=== PATIENT | female | born 1935 | race Caucasian/White ===

== ENCOUNTER 2019-09-11 17:29 | Inpatient (IN) ==
--- NOTE | 2019-09-11 17:56 | Emergency Department Note ---
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 The patient states she was standing up from a chair while in her slippers. She reports she hit her head on the desk and now has severe, right hip pain. The patient notes her hip pain is 10/10 in severity, and she cannot move her leg because it causes discomfort. She states she has a history of a right knee replacement. She denies losing consciousness. The patient reports she is a Jehovah Witness and has limiting medical requests. Home Medications Home Medications Medication Instructions Recorded Confirmed Type glipizide 10 mg PO DAILY 09/11/19 09/11/19 History lisinopril 40 mg PO DAILY 09/11/19 09/11/19 History metformin 500 mg PO DAILY 09/11/19 09/11/19 History metoprolol tartrate 25 mg PO BID 09/11/19 09/11/19 History hbyipcbopqdr-kyonalof-wmdouo 1 tab PO DAILY 09/11/19 09/11/19 History [Multivitamin 50 Plus] simvastatin 20 mg PO DAILY 09/11/19 09/11/19 History Allergies Allergy/AdvReac Type Severity Reaction Status Date / Time No Known Allergies Unverified 09/25/09 09:15 Past Med/Surg History Medical History No pertinent past medical history Surgical History Status post right knee replacement Family History Other No pertinent family history Social History marital status: Current Living Situation: Family Feels Safe at Home: Yes Smoking Status: Former smoker Review of Systems See HPI for pertinent positives & negatives. and A total of 10 systems reviewed and were otherwise negative Physical Exam Vital Signs Vital Signs - 24 hr 09/11/19 17:39 09/11/19 17:41 09/11/19 17:45 Temperature 36.3 C L Temperature Source Oral Pulse Rate 63 64 63 Pulse Rate [Finger] 63 Pulse Rate from SpO2 Sensor 63 62 Respiratory Rate 17 19 12 Blood Pressure 222/87 H 222/87 H Blood Pressure [Right Arm] 222/87 H Blood Pressure Mean 97 132 Blood Pressure Mean [Right Arm] 132 Pulse Oximetry 89 L 98 96 Oxygen Delivery Method Room Air Sepsis Recent Fever Within 48 Hours No Sepsis New/Unexplained Change in Mental Status No Sepsis Action Taken by Nursing No Action Required 09/11/19 17:50 09/11/19 18:00 09/11/19 18:01 Temperature Temperature Source Pulse Rate 64 68 61 Pulse Rate [Finger] Pulse Rate from SpO2 Sensor 65 61 61 Respiratory Rate 23 26 H 26 H Blood Pressure Blood Pressure [Right Arm] Blood Pressure Mean Blood Pressure Mean [Right Arm] Pulse Oximetry 98 100 Oxygen Delivery Method Sepsis Recent Fever Within 48 Hours Sepsis New/Unexplained Change in Mental Status Sepsis Action Taken by Nursing 09/11/19 18:10 09/11/19 18:20 09/11/19 18:50 Temperature Temperature Source Pulse Rate 64 61 65 Pulse Rate [Finger] Pulse Rate from SpO2 Sensor 62 59 L Respiratory Rate 27 H 21 20 Blood Pressure Blood Pressure [Right Arm] Blood Pressure Mean Blood Pressure Mean [Right Arm] Pulse Oximetry 98 96 Oxygen Delivery Method Sepsis Recent Fever Within 48 Hours Sepsis New/Unexplained Change in Mental Status Sepsis Action Taken by Nursing 09/11/19 18:56 09/11/19 18:57 09/11/19 19:00 Temperature Temperature Source Pulse Rate 64 60 65 Pulse Rate [Finger] Pulse Rate from SpO2 Sensor 77 60 66 Respiratory Rate 21 15 16 Blood Pressure 185/110 H Blood Pressure [Right Arm] Blood Pressure Mean 148 Blood Pressure Mean [Right Arm] Pulse Oximetry 98 98 91 Oxygen Delivery Method Sepsis Recent Fever Within 48 Hours Sepsis New/Unexplained Change in Mental Status Sepsis Action Taken by Nursing 09/11/19 19:10 09/11/19 19:20 09/11/19 19:30 Temperature Temperature Source Pulse Rate 59 L 64 66 Pulse Rate [Finger] Pulse Rate from SpO2 Sensor 60 65 66 Respiratory Rate 24 19 20 Blood Pressure Blood Pressure [Right Arm] Blood Pressure Mean Blood Pressure Mean [Right Arm] Pulse Oximetry 98 100 98 Oxygen Delivery Method Sepsis Recent Fever Within 48 Hours Sepsis New/Unexplained Change in Mental Status Sepsis Action Taken by Nursing 09/11/19 19:31 09/11/19 19:40 09/11/19 19:50 Temperature Temperature Source Pulse Rate 63 64 82 Pulse Rate [Finger] Pulse Rate from SpO2 Sensor 63 64 Respiratory Rate 25 H 20 31 H Blood Pressure 199/123 H Blood Pressure [Right Arm] Blood Pressure Mean 131 Blood Pressure Mean [Right Arm] Pulse Oximetry 97 98 Oxygen Delivery Method Sepsis Recent Fever Within 48 Hours Sepsis New/Unexplained Change in Mental Status Sepsis Action Taken by Nursing 09/11/19 20:00 09/11/19 20:26 09/11/19 20:30 Temperature Temperature Source Pulse Rate 72 76 64 Pulse Rate [Finger] Pulse Rate from SpO2 Sensor 72 63 Respiratory Rate 26 H 31 H 31 H Blood Pressure 175/86 H Blood Pressure [Right Arm] Blood Pressure Mean 122 Blood Pressure Mean [Right Arm] Pulse Oximetry 97 95 Oxygen Delivery Method Sepsis Recent Fever Within 48 Hours Sepsis New/Unexplained Change in Mental Status Sepsis Action Taken by Nursing 09/11/19 20:40 09/11/19 20:50 Temperature Temperature Source Pulse Rate 61 66 Pulse Rate [Finger] Pulse Rate from SpO2 Sensor 67 65 Respiratory Rate 21 24 Blood Pressure Blood Pressure [Right Arm] Blood Pressure Mean Blood Pressure Mean [Right Arm] Pulse Oximetry 94 100 Oxygen Delivery Method Sepsis Recent Fever Within 48 Hours Sepsis New/Unexplained Change in Mental Status Sepsis Action Taken by Nursing CONSTITUTIONAL/VITAL SIGNS: Reviewed / noted above. GENERAL: Non-toxic in appearance. INTEGUMENTARY: Warm, dry, and [place]. HEAD: Normocephalic. Adequately approximated scalp laceration 2-3cm in length on the apex of the head that does not require repair. EYES: without scleral icterus or trauma. ENT/OROPHARYNX: clear and moist. LYMPHADENOPATHY/NECK: Is supple without lymphadenopathy or meningismus. RESPIRATORY: Lungs clear and equal. CARDIOVASCULAR: Regular rate and rhythm. GI/ABDOMEN: Soft and nontender. No organomegaly or pulsatile mass. No rebound or guarding. Normal bowel sounds. EXTREMITIES: Warm and well perfused. Discomfort in the right femur/hip area with movement and palpation. BACK: No CVA tenderness. NEUROLOGICAL: Intact without focal deficits. PSYCHIATRIC: normal affect. MUSCULOSKELETAL: Normally developed with good muscle tone. Course Course 1743: The patient was evaluated in room B03B. A complete history and physical exam was performed. 2000: I reevaluated the patient and discussed her current test results. 2056: Upon reevaluation, the patient is resting comfortably. I discussed laboratory and radiographic results with her. She verbalized agreement of the treatment plan. The patient will be evaluated for further management and care. 2102: I reviewed the patient's case with Dr. Cano, [facility] Hospitalist. He will evaluate the patient for further management. Administered Medications Morphine Sulfate (Morphine Sulfate) 4 mg IV Q1H PRN PRN Reason: Severe Pain (Rating 7,8,9,10) Stop: 09/25/19 17:51 Last Admin: 09/11/19 19:54 Dose: 4 mg Documented by: [id number] Admin: 09/11/19 18:08 Dose: 4 mg Documented by: [id number] Discontinued Medications Ondansetron HCl (Zofran) Confirm Administered Dose 4 mg .ROUTE .InVitae-MED ONE Stop: 09/11/19 18:07 Last Admin: 09/11/19 20:13 Dose: Not Given Documented by: [id number] Medical Decision Making Differential Diagnosis Differential diagnoses include major intracranial, cervical, spinal, thoracic, abdominal, pelvic and neurologic injury. Fracture, contusion, sprain, strain, laceration, abrasions included as well. Medical Records Attestation: I reviewed the patient's medical records. Home Medications Current Medication List: was personally reviewed by me Laboratory Data Attestation: I reviewed the patient's lab results. Result diagrams: 09/11/19 17:48 09/11/19 17:48 Lab Results 09/11/19 09/11/19 09/11/19 Range/Units 17:48 17:48 17:48 WBC 6.42 (4.8-10.8) K/uL RBC 4.14 L (4.2-5.4) M/uL Hgb 13.5 (12.0-16.0) g/dL Hct 40.1 (37-47) % MCV 96.9 (80-100) fL MCH 32.6 (25-34) pg MCHC 33.7 (32-36) g/dL RDW Std Deviation 48.2 H (36.4-46.3) fL RDW Coeff of Elton 13.5 (11.5-14.5) % Plt Count 256 (130-400) K/uL MPV 10.2 (7.4-10.4) fL Immature Gran % (Auto) 0.3 % Neut % (Auto) 53.8 % Lymph % (Auto) 35.4 % Kerr % (Auto) 8.3 % Eos % (Auto) 1.6 % Baso % (Auto) 0.6 % Immature Gran # (Auto) 0.02 (0.00-0.02) K/uL Neut # (Auto) 3.46 (1.4-6.5) K/uL Lymph # (Auto) 2.27 (1.2-3.4) K/uL Kerr # (Auto) 0.53 (0.11-0.59) K/uL Eos # (Auto) 0.10 (0-0.5) K/uL Baso # (Auto) 0.04 (0-0.2) K/uL PT 10.2 (9.0-12.0) Seconds INR 1.0 (0.9-1.1) APTT 26.8 (21.0-31.0) Seconds PTT Ratio 1.0 Sodium 138 (136-145) mmol/L Potassium 4.1 (3.5-5.1) mmol/L Chloride 107 (98-107) mmol/L Carbon Dioxide 26 (21-32) mmol/L Anion Gap 5.0 (3-11) BUN 24 H (7-18) mg/dl Creatinine 1.38 H (0.6-1.2) mg/dl Est Cr Clr Drug Dosing Not Reportable Est GFR ( Amer) 40.3 Est GFR (Non-Af Amer) 34.8 BUN/Creatinine Ratio 17.4 (10-20) Glucose 147 H (70-99) mg/dl Calcium 9.5 (8.5-10.1) mg/dl Specimen Hemolysis Imaging Data Radiologist's Impression: Radiology results as stated below per my review and the radiologist's interpretation: CT hip RT wo con CT DOSE: 396.97 mGy.cm HISTORY: Trauma. Pain. r/o fx TECHNIQUE: Multiaxial CT images of the right hip were performed and reformatted in the sagittal and coronal plane without the use of contrast. A dose lowering technique was utilized adhering to the principles of ALARA. COMPARISON: None. FINDINGS: Fracture subcapital region right hip. There are findings of an anterior lucency of the femoral neck possibly on the basis of or accentuated by osteoporosis. A lytic process isn't not easily identified. Possible hairline extension to the lesser trochanter. This is best seen on image 221. Old healed fracture right pubic ring. No evidence for dislocation. Femoral neck is slightly anterior to the subcapital region. IMPRESSION: 1. Slightly displaced and distracted subcapital fracture right hip. 2. Linear hairline extension to the lesser trochanter. 3. No evidence for dislocation. 4. Osteopenia/osteoporosis. ACT 112: Negative or not required by law. The above report was generated using voice recognition software. It may contain grammatical, syntax or spelling errors. Electronically signed by: Srinivas Gutiérrez M.D. 09/11/2019 8:29 PM XR femur RT 2V routine CLINICAL HISTORY: pain after fall trauma. Pain. COMPARISON: None. DISCUSSION: Slight linear sclerosis subcapital region right hip on the slightly rotated image. Remainder the femur is unremarkable. There is a total right knee arthroplasty. IMPRESSION: Sclerotic line at the subcapital region of the right hip. Considerations include artifact versus slightly impacted fracture. CT of the right hip is suggested as follow-up. ACT 112: Negative or not required by law. The above report was generated using voice recognition software. It may contain grammatical, syntax or spelling errors. Electronically signed by: Srinivas Gutiérrez M.D. 09/11/2019 6:57 PM XR hip RT 2V w pelvis CLINICAL HISTORY: fall, pain trauma. Pain. COMPARISON: None. DISCUSSION: Sclerotic linear focus subcapital region right hip. CT of the right hip is again suggested as follow-up. The remainder the bony pelvis shows generalized degenerative changes throughout. No evidence for acetabular protrusion. There is no evidence for soft tissue swelling. IMPRESSION: Artifact versus slightly impacted subcapital fracture right hip. CT of the right hip is suggested as follow-up. ACT 112: Negative or not required by law. The above report was generated using voice recognition software. It may contain grammatical, syntax or spelling errors. Electronically signed by: Srinivas Gutiérrez M.D. 09/11/2019 6:58 PM XR chest 1V portable CLINICAL HISTORY: fall, rt hip pain COMPARISON STUDY: No previous studies for comparison. FINDINGS: Severe degenerative change right shoulder. Prior total left shoulder arthroplasty. IMPRESSION: No acute process. ACT 112: Negative or not required by law. The above report was generated using voice recognition software. It may contain grammatical, syntax or spelling errors. Electronically signed by: Srinivas Gutiérrez M.D. 09/11/2019 6:55 PM ECG Data Attestation: I personally reviewed and interpreted this ECG as follows: Indication: + other (trauma) Rate (beats per minute): 58 Rhythm: + sinus bradycardia ECG Intervals/blocks: + First degree AV block and + Normal QT-c ECG ST segments: no ST elevation ECG Findings: no PVCs Blood Pressure Blood Pressure Findings: Elevated blood pressure Blood Pressure Disposition: further management by hospitalist MDM Narrative This is a 84-year-old female who presents to the ED with a chief complaint of right-sided hip and femur pain after a fall. The patient states that she slipped when getting up from her desk and struck the back of her head on the desk. She denies loss of consciousness. She has a 2 to 3 cm laceration of the scalp posterior that is adequately approximated naturally. This does not require repair. The patient also has tenderness to the right hip and femur area as well as discomfort with rotation and any type of movement. There is no appreciated shortening but there is a slight external rotation. The rest of the patient exam was unremarkable for any significant or concerning trauma. Her initial blood pressure was elevated likely related the pain. She was ordered IV morphine for discomfort. The patient CBC and chemistry panel was unremarkable. The BUN is 24 and creatinine 1.38. X-rays of the pelvis and right hip as well as right knee did not show acute fracture but there was a questionable fracture and CT scan was recommended of the right hip. CT scan reveals a slightly displaced and distracted subcapital hip fracture with linear extension into the lesser trochanter. The patient was treated with morphine for her pain. She was told the results. I spoke with the hospitalist who will see the person for further inpatient evaluation and care. Impression & Plan Closed fracture of right hip, Laceration of occipital scalp Discharge Plan Visit Data Chief Complaint: Hip Pain Stated Complaint: HIP DISLOCATION ED Provider: Leon Fagan Discharge Problem: Closed fracture of right hip, Laceration of occipital scalp Patient Disposition: Being Evaluated by Hospitalist Forms Stand Alone Forms: My [facility] Prescriptions Prescriptions: No Action glipizide 10 mg tablet 10 mg PO DAILY RF: 0 simvastatin 20 mg tablet 20 mg PO DAILY RF: 0 metoprolol tartrate 50 mg tablet 25 mg PO BID RF: 0 lisinopril 40 mg tablet 40 mg PO DAILY RF: 0 metformin 500 mg tablet extended release 24 hr 500 mg PO DAILY RF: 0 Multivitamin 50 Plus Tablet 1 tab PO DAILY RF: 0 Referrals Referrals: Srinivas James MD [Primary Care Provider] - Discharge Problem: Closed fracture of right hip Qualifiers: Encounter type: initial encounter Qualified Code(s): S72.001A - Fracture of unspecified part of neck of right femur, initial encounter for closed fracture Laceration of occipital scalp Qualifiers: Encounter type: initial encounter Qualified Code(s): S01.01XA - Laceration without foreign body of scalp, initial encounter The scribe's documentation has been prepared under my direction and personally reviewed by me in its entirety. I confirm that the note above accurately reflects all work, treatment, procedures, and medical decision making performed by me.
[2019-09-11] MEDS ORDERED: ONDANSETRON INJ 2 MG/ML 2 ML VIAL ONE (18:06)
[2019-09-11] MEDS: MoRPHine SULFATE 4 MG/ML 1 ML CARP\\VIAL IV PRN ×3 (18:08→22:35)
[2019-09-11 18:20] LABS: Basophils # (auto) 0.04 K/uL (0-0.2); Basophils % (auto) 0.6 %; Eosinophils % (auto) 1.6 %; Hematocrit (blood only) 40.1 % (37-47); Hemoglobin 13.5 g/dL (12.0-16.0); Immature Granulocytes # (auto) 0.02 K/uL (0.00-0.02); Immature Granulocytes % (auto) 0.3 %; Lymphocytes # (auto) 2.27 K/uL (1.2-3.4); Lymphocytes % (auto) 35.4 %; Mean Corpuscular Hemoglobin 32.6 pg (25-34); Mean Corpuscular Hgb Conc 33.7 g/dL (32-36); Mean Corpuscular Volume 96.9 fL (80-100); Mean Platelet Volume 10.2 fL (7.4-10.4); Monocytes # (auto) 0.53 K/uL (0.11-0.59); Monocytes % (auto) 8.3 %; Neutrophils # (auto) 3.46 K/uL (1.4-6.5); Neutrophils % (auto) 53.8 %; Platelet Count 256 K/uL (130-400); RDW Coefficient of Variation 13.5 % (11.5-14.5); RDW Standard Deviation 48.2 fL (36.4-46.3); Red Blood Count 4.14 M/uL (4.2-5.4); White Blood Count 6.42 K/uL (4.8-10.8)
[2019-09-11 18:25] LABS: Partial Thromboplastin Time 26.8 Seconds (21.0-31.0); Prothrombin Time 10.2 Seconds (9.0-12.0)
[2019-09-11 18:29] LABS: BUN Creatinine Ratio 17.4 (10-20); Blood Urea Nitrogen 24 mg/dl (7-18); Calcium 9.5 mg/dl (8.5-10.1); Carbon Dioxide 26 mmol/L (21-32); Chloride 107 mmol/L (98-107); Est GFR (African American) 40.3; Est GFR (Non-African American) 34.8; Glucose 147 mg/dl (70-99); Potassium 4.1 mmol/L (3.5-5.1); Sodium 138 mmol/L (136-145)
--- NOTE | 2019-09-11 18:56 | XRay Report ---
XR chest 1V portable CLINICAL HISTORY: fall, rt hip pain COMPARISON STUDY: No previous studies for comparison. FINDINGS: Severe degenerative change right shoulder. Prior total left shoulder arthroplasty. IMPRESSION: No acute process. ACT 112: Negative or not required by law. The above report was generated using voice recognition software. It may contain grammatical, syntax or spelling errors. Electronically signed by: Srinivas Gutiérrez M.D. 09/11/2019 6:55 PM
--- NOTE | 2019-09-11 18:58 | XRay Report ---
XR femur RT 2V routine CLINICAL HISTORY: pain after fall trauma. Pain. COMPARISON: None. DISCUSSION: Slight linear sclerosis subcapital region right hip on the slightly rotated image. Remain sofia the femur is unremarkable. There is a total right knee arthroplasty. IMPRESSION: Sclerotic line at the subcapital region of the right hip. Considerations include artifact versus slightly impacted fracture. CT of the right hip is suggested as follow-up. ACT 112: Negative or not required by law. The above report was generated using voice recognition software. It may contain grammatical, syntax or spelling errors. Electronically signed by: Srinivas Gutiérrez M.D. 09/11/2019 6:57 PM
--- NOTE | 2019-09-11 19:00 | XRay Report ---
XR hip RT 2V w pelvis CLINICAL HISTORY: fall, pain trauma. Pain. COMPARISON: None. DISCUSSION: Sclerotic linear focus subcapital region right hip. CT of the right hip is again suggeste d as follow-up. The remainder the bony pelvis shows generalized degenerative changes throughout. No e vidence for acetabular protrusion. There is no evidence for soft tissue swelling. IMPRESSION: Artifact versus slightly impacted subcapital fracture right hip. CT of the right hip is s uggested as follow-up. ACT 112: Negative or not required by law. The above report was generated using voice recognition software. It may contain grammatical, syntax or spelling errors. Electronically signed by: Srinivas Gutiérrez M.D. 09/11/2019 6:58 PM
--- NOTE | 2019-09-11 20:31 | CT Scan Report ---
CT hip RT wo con CT DOSE: 396.97 mGy.cm HISTORY: Trauma. Pain. r/o fx TECHNIQUE: Multiaxial CT images of the right hip were performed and reformatted in the sagittal and c oronal plane without the use of contrast. A dose lowering technique was utilized adhering to the michael Miles. COMPARISON: None. FINDINGS: Fracture subcapital region right hip. There are findings of an anterior lucency of the femo ral neck possibly on the basis of or accentuated by osteoporosis. A lytic process isn't not easily id entified. Possible hairline extension to the lesser trochanter. This is best seen on image 221. Old healed fracture right pubic ring. No evidence for dislocation. Femoral neck is slightly anterior to the subcapital region. IMPRESSION: 1. Slightly displaced and distracted subcapital fracture right hip. 2. Linear hairline extension to the lesser trochanter. 3. No evidence for dislocation. 4. Osteopenia/osteoporosis. ACT 112: Negative or not required by law. The above report was generated using voice recognition software. It may contain grammatical, syntax or spelling errors. Electronically signed by: Srinivas Gutiérrez M.D. 09/11/2019 8:29 PM
[2019-09-11] MEDS ORDERED: MoRPHine SULFATE 4 MG/ML 1 ML CARP\\VIAL IV PRN (23:12)
[2019-09-11] MEDS ORDERED: ONDANSETRON INJ 2 MG/ML 2 ML VIAL IV PRN (23:12)
[2019-09-11] MEDS ORDERED: HydrALAZINE HCL 20 MG/ML VIAL IV PRN (23:12)
[2019-09-11] MEDS ORDERED: POLYETHYLENE (MIRALAX) 17 GM PACK PO PRN (23:12)
[2019-09-11] MEDS ORDERED: GLUCAGON FOR INJ 1 MG VIAL IM PRN (23:30)
[2019-09-11] MEDS ORDERED: GLUCOSE 10 TABS/TUBE PO PRN (23:30)
[2019-09-11] MEDS ORDERED: DEXTROSE 50% 50 ML SYRINGE IV PRN (23:30)
[2019-09-11] MEDS ORDERED: GLUCOSE 40% GEL 15 GM TUBE PO PRN (23:30)
[2019-09-11] MEDS ORDERED: CARBOHYDRATES FOR HYPOGLYCEMIA PO PRN (23:30)
[2019-09-11] MEDS: SODIUM CHLORIDE 0.9% 1000ML 1,000 ML IV SCH (23:50)
[2019-09-12] MEDS: METOPROLOL TARTRATE 25 MG TAB PO SCH ×3 (00:04→20:52)
[2019-09-12] MEDS: INSULIN ASPART 100 UNITS/ML 3 ML PEN SC SCH ×5 (00:20→22:03)
--- NOTE | 2019-09-12 00:44 | History and Physical Report ---
DATE OF ADMISSION: 09/11/2019 CHIEF COMPLAINT: Fall and hip fracture. HISTORY OF PRESENT ILLNESS: This is an 84-year-old female with past medical history significant for type 2 diabetes, hypertension, vitamin D deficiency, history of urinary frequency, generalized osteoarthritis, who lives with her , walks without any support, fell at home. The patient says she was getting up from the chair and she just turned and she is wearing a soft footwear when she slipped and fell on the right side. She also hit her head, was bleeding from the head, but there was no loss of consciousness, did not feel dizzy or chest pain before falling. It was a mechanical fall and she could not get up and she was brought in here. Head wound was fine, but imaging studies showed right hip slightly displaced and distracted subcapital fracture of right hip, linear hairline extension into the lesser trochanter. Has had pain medication. Currently resting comfortably. Any movement causes her pain. Hemodynamics are stable. Denies any headache, no blurred vision, no dizziness, no earache, no runny nose, no sore throat, no cough, no fever, no chills. Appetite is okay. No dysphagia, no chest pain, no shortness of breath, no nausea, no abdominal pain. She has normal bowel and bladder movements. No blood in the stools or black stools. No burning micturition, no swelling in the legs. ALLERGIES: EGGS. PAST MEDICAL HISTORY: As mentioned above. PAST SURGICAL HISTORY: Colonoscopy, right total knee arthroplasty, left shoulder replacement, right shoulder surgery. MEDICATIONS: The patient is on metformin 500 mg p.o. daily, Lopressor 25 mg p.o. b.i.d., glipizide 10 mg p.o. b.i.d., simvastatin 20 mg p.o. daily, lisinopril 40 mg p.o. daily. FAMILY HISTORY: No family history on file. SOCIAL HISTORY: , lives with her . No smoking, no alcohol, no drug use. REVIEW OF SYMPTOMS: As per HPI. Rest of review of symptoms negative. PHYSICAL EXAMINATION: GENERAL: The patient is old and frail, not in acute distress. VITAL SIGNS: Temperature 36.3, pulse 70, respiratory rate 18, blood pressure 104/51, oxygen 97% room air. HEENT: No pallor, no icterus. Pupils equal, round, reactive to light. NECK: No JVD, no neck masses, no carotid bruits. CARDIOVASCULAR: S1, S2 heard, regular rate and rhythm, no murmur, no gallop. RESPIRATORY SYSTEM: Normal AP diameter. No accessory muscle use. No wheezing, no crackles. ABDOMEN: Soft, bowel sounds present, nontender. No distention. CENTRAL NERVOUS SYSTEM: Alert and oriented. Obeys commands. Nonfocal. EXTREMITIES: Right lower extremity is shortened and externally rotated. No erythema seen. LABORATORY DATA: WBC 6.4, hemoglobin 13.5, hematocrit 40.1, platelets 256. PT 10.2, INR 1, APTT 26.8. Sodium 138, potassium 4.1, chloride 107, bicarbonate 26, BUN 24, creatinine 1.38, glucose 147, calcium 9.5. Chest x-ray: No acute process. Femur x-ray, sclerotic line in the subcapital region of the right hip. IMAGING: Hip and pelvic x-ray artifact versus slightly impacted subcapital fracture of the right hip. Hip CT, slightly displaced and distracted subcapital fracture of right hip, linear hairline extension into the lesser trochanter. No evidence of dislocation, osteopenia, osteoporosis. EKG: Sinus bradycardia with first degree AV block at a rate of 58. Some T-wave inversions in the anterior leads,ST-T abnormality. ASSESSMENT AND PLAN: This is an 84-year-old female who presents with fall. 1. Status post fall and mechanical fall and right hip fracture: Pain control with IV morphine p.r.n. Will keep her n.p.o. after midnight. Gentle fluids.Labs are okay. EKG changes, but we do not have an old EKG to compare. The patient is asymptomatic and she ambulates fine. We will follow the troponins. If troponin is negative, the patient should be at acceptable risk to proceed with surgery. 2. Diabetes. Hold metformin. Treated with metformin and glipizide 10 mg p.o. b.i.d. at home. She did not want to be on insulin. We will restart glipizide after surgery, with the lower dose but the patient is okay to take insulin only if sugars are high. placed on sliding scale without carb ratio. 3. Hypertension: Continue on Lopressor. Hold lisinopril until surgery and restart, meanwhile placed on IV hydralazine p.r.n. 4. Hyperlipidemia: On statin. 5. Deep venous thrombosis prophylaxis as per orthopedics after surgery. 6. Disposition: Admit to medical floor. Expect PT and OT prior to discharge. Social Service to help with discharge planning. Code status level 1 full code. MTDD
[2019-09-12 05:41] LABS: Basophils # (auto) 0.02 K/uL (0-0.2); Basophils % (auto) 0.2 %; Eosinophils # (auto) 0.05 K/uL (0-0.5); Eosinophils % (auto) 0.6 %; Hematocrit (blood only) 36.8 % (37-47); Hemoglobin 12.2 g/dL (12.0-16.0); Immature Granulocytes # (auto) 0.02 K/uL (0.00-0.02); Immature Granulocytes % (auto) 0.2 %; Mean Corpuscular Hgb Conc 33.2 g/dL (32-36); Mean Corpuscular Volume 96.6 fL (80-100); Mean Platelet Volume 9.6 fL (7.4-10.4); Monocytes # (auto) 0.53 K/uL (0.11-0.59); Monocytes % (auto) 5.9 %; Neutrophils # (auto) 7.51 K/uL (1.4-6.5); Neutrophils % (auto) 83.1 %; Platelet Count 202 K/uL (130-400); RDW Coefficient of Variation 13.5 % (11.5-14.5); RDW Standard Deviation 47.9 fL (36.4-46.3); Red Blood Count 3.81 M/uL (4.2-5.4); White Blood Count 9.03 K/uL (4.8-10.8)
[2019-09-12] MEDS ORDERED: COUGH DROP (SUGAR FREE) LOZ 24 LOZ/1 BOX BUCCAL ONE (05:49)
[2019-09-12 06:07] LABS: Estimated Average Glucose 140 mg/dl; Hemoglobin A1C 6.5 % (4.5-5.6)
[2019-09-12 06:11] LABS: BUN Creatinine Ratio 17.5 (10-20); Calcium 8.6 mg/dl (8.5-10.1); Creatinine Clr Calc Pharmacy 30.9 ml/min; Est GFR (African American) 44.6; Est GFR (Non-African American) 38.5; Magnesium 1.9 mg/dl (1.8-2.4); Potassium 4.7 mmol/L (3.5-5.1)
--- NOTE | 2019-09-12 06:36 | CT Scan Report ---
CT head/brain wo con CLINICAL HISTORY: fall. head injury COMPARISON STUDY: No previous studies for comparison. TECHNIQUE: Axial CT of the brain is performed from the vertex to the skull base. IV contrast was not administered for this examination. A dose lowering technique was utilized adhering to the principles of ALARA. CT DOSE: 767.83 mGy.cm FINDINGS: No intra or extra-axial mass lesions are visualized. There is no CT evidence of acute cortical infarc tion. There is no evidence of midline shift. There is no acute hemorrhage. No calvarial fractures ar e visualized. There are minor white matter hypodensities likely on a small vessel basis. There is no evidence of pathologic ventricular dilatation. There is mild sphenoid sinus mucosal thickening. IMPRESSION: No acute intracranial findings ACT 112: Negative or not required by law. Electronically signed by: Zohaib Escalante M.D. 09/12/2019 6:35 AM
--- NOTE | 2019-09-12 08:15 | Orthopedic Consultation ---
Date of Consultation September 12, 2019 Assessment & Plan (1) Closed fracture of right hip: I have spoken briefly to medicine service. She has a slight bump in her troponins and plans are to get an echocardiogram this morning. Plans will be to take her to the operating room for either a bipolar hemiarthroplasty versus total hip arthroplasty by when she is Medically cleared. History of Present Illness Reason for Consultation: Right hip fracture Attending Physician: Jl Anglin MD History of Present Illness Patient is an 84-year-old white female known to our practice who suffered a mechanical fall at home yesterday. Past medical history significant for type 2 diabetes, hypertension, vitamin D deficiency, history of urinary frequency, generalized osteoarthritis, Patient states she is unsure if her bone broke prior to the fall or after. She states she was rushing around and got out of her chair and was going to walk to another room. She ended up falling and she hit her head during the fall. She apparently had some mild bleeding from this but did not lose consciousness and denied any shortness of breath, chest pain, lightheadedness prior to or after the fall. She was unable to ambulate after the fall because of pain in her right hip and groin. She was brought to the emergency room and seen by the staff. X-rays were taken and was found that she had a displaced right subcapital hip fracture. [facility] and we have been asked to see her for hip fracture. Currently she is awake and alert sitting up in bed. She has pain off and on in the right hip. She has no other complaints. Allergies Allergy/AdvReac Type Severity Reaction Status Date / Time egg AdvReac Gastrointestinal Verified 09/12/19 15:02 Upset Home Medications Home Medications Medication Instructions Recorded Confirmed Type glipizide 10 mg PO DAILY 09/11/19 09/11/19 History lisinopril 40 mg PO DAILY 09/11/19 09/11/19 History metformin 500 mg PO DAILY 09/11/19 09/11/19 History metoprolol tartrate 25 mg PO BID 09/11/19 09/11/19 History emyilwhriqlh-abgocgln-hzsewd 1 tab PO DAILY 09/11/19 09/11/19 History [Multivitamin 50 Plus] simvastatin 20 mg PO DAILY 09/11/19 09/11/19 History Patient History Medical History No pertinent past medical history Surgical History 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 marital status: Current Living Situation: Spouse Feels Safe at Home: Yes Smoking Status: Former smoker Hx Alcohol Use: No Hx Substance Use: No Physical Exam Physical Exam: Patient is an 84-year-old white female who appears younger than her stated age. She is alert and oriented x3 and in no acute distress, pleasant and cooperative. She is having some mild hip pain in the right hip and groin at this point. She answers all questions appropriately. Focusing the exam of the right lower extremity, her right lower extremity is shortened and externally rotated compared to the left. No attempts are made to take the right hip through range of motion nor is the knee taken through range of motion secondary to right hip fracture. Her right knee is nontender on palpation and no overt swelling is noted. She has good range of motion of her right ankle and toes without discomfort. Left lower extremity is essentially benign at this time and is nontender at the hip knee and ankle. Distal pulses are equal bilaterally. Sensation is intact. She denies any pain in the shoulders elbows and wrists. She has good range of motion of the upper extremities. She does have some mild pain over the right lateral portion of her thoracic area and has some noted bruising from the fall. This is slightly tender on palpation. I can appreciate no crepitus on palpation. She denies any thoracic or lumbar spine pain at this time. There is no gross motor or sensory loss seen at this time; distal pulses of the upper extremities are within normal limits as well. Results & Data ([facility]) Vital Signs (Past 12 Hours) Vital Signs Temp Pulse Pulse Pulse Resp BP BP 09/12/19 07:36 36.7 C 70 18 09/12/19 05:32 80 09/12/19 00:03 71 09/11/19 22:55 36.5 C 76 16 169/73 H 09/11/19 22:22 69 19 178/75 H 09/11/19 22:20 72 24 09/11/19 22:10 70 20 09/11/19 22:02 71 22 09/11/19 22:01 71 27 H 196/85 H 09/11/19 22:00 72 23 09/11/19 21:50 70 27 H 09/11/19 21:40 72 29 H 09/11/19 21:30 70 18 09/11/19 21:20 70 18 09/11/19 21:10 69 20 09/11/19 21:01 62 24 104/51 L 09/11/19 21:00 67 30 H 09/11/19 20:50 66 24 09/11/19 20:40 61 21 09/11/19 20:30 64 31 H 09/11/19 20:26 76 31 H BP Pulse Ox 09/12/19 07:36 150/75 H 93 09/12/19 05:32 146/69 H 09/12/19 00:03 161/72 H 09/11/19 22:55 96 09/11/19 22:22 97 09/11/19 22:20 97 09/11/19 22:10 96 09/11/19 22:02 95 09/11/19 22:01 97 09/11/19 22:00 97 09/11/19 21:50 93 09/11/19 21:40 93 09/11/19 21:30 97 09/11/19 21:20 97 09/11/19 21:10 96 09/11/19 21:01 98 09/11/19 21:00 99 09/11/19 20:50 100 09/11/19 20:40 94 09/11/19 20:30 95 09/11/19 20:26 Diagnostic Findings [facility], [place] [phone] CT Scan Report Patient: Coral JOSHI Date: 09/11/19 MR#: [id number]: [address] Acct ID:[id number]: Date: [address] [place] [address] Zip: [place] [id number] Age: 84Location: ED Sex: F Room/Bed: Att Phy:Diagnosis: HIP DISLOCATION Jessica Phy: Srinivas James, MDService Date: 09/11/19 Fam Phy:Interpreting Phy: Srinivas Gutiérrez MD Admit Phy: Ordering Phy: Leon Fagan D.O. cc: ~ CT hip RT wo con CT DOSE: 396.97 mGy.cm HISTORY: Trauma. Pain. r/o fx TECHNIQUE: Multiaxial CT images of the right hip were performed and reformatted in the sagittal and coronal plane without the use of contrast. A dose lowering technique was utilized adhering to the principles of ALARA. COMPARISON: None. FINDINGS: Fracture subcapital region right hip. There are findings of an anterior lucency of the femoral neck possibly on the basis of or accentuated by osteoporosis. A lytic process isn't not easily identified. Possible hairline extension to the lesser trochanter. This is best seen on image 221. Old healed fracture right pubic ring. No evidence for dislocation. Femoral neck is slightly anterior to the subcapital region. IMPRESSION: 1. Slightly displaced and distracted subcapital fracture right hip. 2. Linear hairline extension to the lesser trochanter. 3. No evidence for dislocation. 4. Osteopenia/osteoporosis. (1) Closed fracture of right hip Encounter type: initial encounter Qualified Code(s): S72.001A - Fracture of unspecified part of neck of right femur, initial encounter for closed fracture
--- NOTE | 2019-09-12 10:45 | Cardiology Consultation ---
Date of Consultation September 12, 2019 Assessment & Plan (1) Closed fracture of right hip: (2) History of total replacement of left shoulder joint: (3) Hypertension: (4) Diabetes type 2, controlled: (5) Troponin level elevated: By the Darin criteria this patient is low risk for this surgery estimated to be 0.4%. She has a very borderline elevation of her troponin and I believe that it is most likely due to lab error. I would however wait for the additional troponin studies that are ordered. If the troponin is normal and does not elevate, then I believe she can proceed to surgery. I will also repeat her EKG due to the nonspecific ST and T wave changes to be certain there is not a p rogression. I reviewed her echocardiogram and there were no wall motion abnormalities that would suggest ischemic heart disease or significant valvular pathology. History of Present Illness Attending Physician: Jl Anglin MD History of Present Illness This is a very healthy 84-year-old female with minimal past medical history except for some mild essential hypertension and diabetes which has been well treated. She has no prior cardiac history. She was in a good state of health yesterday. She had house shoes on and stood up from a chair. Due to her shoes she slipped and fell fracturing her hip and striking her head. She sustained a contusion on her head but no significant head trauma. She had no symptoms such as dizziness, lightheadedness, chest pain or shortness of breath. This was strictly a mechanical fall. After admission to the hospital the patient has had a cardiac troponin which is just barely over the limit at 0.048. Her EKG shows a sinus bradycardia reflecting her use of metoprolol and there are some nonspecific lateral ST and T wave changes. She has no current cardiac complaints. Allergies Allergy/AdvReac Type Severity Reaction Status Date / Time No Known Allergies Unverified 09/25/09 09:15 Home Medications Home Medications Medication Instructions Recorded Confirmed Type glipizide 10 mg PO DAILY 09/11/19 09/11/19 History lisinopril 40 mg PO DAILY 09/11/19 09/11/19 History metformin 500 mg PO DAILY 09/11/19 09/11/19 History metoprolol tartrate 25 mg PO BID 09/11/19 09/11/19 History tmmoaztzjhzp-qisrthvv-qxobmn 1 tab PO DAILY 09/11/19 09/11/19 History [Multivitamin 50 Plus] simvastatin 20 mg PO DAILY 09/11/19 09/11/19 History Patient History Medical History No pertinent past medical history Surgical History History of total replacement of left shoulder joint Status post right knee replacement Family History Other No pertinent family history Social History Preferred Language: Malay Communication Ability: Effective 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 marital status: Current Living Situation: Spouse Feels Safe at Home: Yes Smoking Status: Former smoker Hx Alcohol Use: No Hx Substance Use: No Review of Systems Review of Systems: All systems reviewed & are unremarkable except as noted in HPI & below Nothing additional to add. Physical Exam Physical Exam: General: no acute distress and stated age Head: normocephalic, no masses, lesions, tenderness or abnormalities Eyes: conjunctiva are pink and non-injected, sclera clear Neck: supple, no adenopathy, no bruits, normal jugular venous pulse, no hepatojugular reflux Chest: normal shape and normal respiratory effort Lungs: clear to auscultation and percussion Cardiac Exam: - regular rate & rhythm, no murmurs gallops or rubs - normal S1, normal S2 Pulses: 2(+) throughout Abdomen: abdomen soft, non-tender, no abnormal masses and no hepatosplenomegaly Musculoskeletal: no gait disturbance, no joint inflammation, no deforming arthritis Extremities: no edema and no cyanosis Neuro: grossly normal exam Results & Data ([facility]) Vital Signs (Past 12 Hours) Vital Signs Temp Pulse Pulse Resp BP BP Pulse Ox 09/12/19 07:36 36.7 C 70 18 150/75 H 93 09/12/19 05:32 80 146/69 H 09/12/19 00:03 71 161/72 H 09/11/19 22:55 36.5 C 76 16 169/73 H 96 Laboratory Results Laboratory Results - last 24 hr 09/11/19 09/11/19 09/11/19 17:48 17:48 17:48 WBC 6.42 RBC 4.14 L Hgb 13.5 Hct 40.1 MCV 96.9 MCH 32.6 MCHC 33.7 RDW Std Deviation 48.2 H RDW Coeff of Elton 13.5 Plt Count 256 MPV 10.2 Immature Gran % (Auto) 0.3 Neut % (Auto) 53.8 Lymph % (Auto) 35.4 Whitley % (Auto) 8.3 Eos % (Auto) 1.6 Baso % (Auto) 0.6 Immature Gran # (Auto) 0.02 Neut # (Auto) 3.46 Lymph # (Auto) 2.27 Whitley # (Auto) 0.53 Eos # (Auto) 0.10 Baso # (Auto) 0.04 PT 10.2 INR 1.0 APTT 26.8 PTT Ratio 1.0 Sodium 138 Potassium 4.1 Chloride 107 Carbon Dioxide 26 Anion Gap 5.0 BUN 24 H Creatinine 1.38 H Est Cr Clr Drug Dosing Not Reportable Est GFR ( Amer) 40.3 Est GFR (Non-Af Amer) 34.8 BUN/Creatinine Ratio 17.4 Glucose 147 H POC Glucose Estimat Average Glucose Hemoglobin A1c Calcium 9.5 Magnesium Troponin I Specimen Hemolysis 09/11/19 09/12/19 09/12/19 23:38 05:21 05:21 WBC 9.03 RBC 3.81 L Hgb 12.2 Hct 36.8 L MCV 96.6 MCH 32.0 MCHC 33.2 RDW Std Deviation 47.9 H RDW Coeff of Elton 13.5 Plt Count 202 MPV 9.6 Immature Gran % (Auto) 0.2 Neut % (Auto) 83.1 Lymph % (Auto) 10.0 Whitley % (Auto) 5.9 Eos % (Auto) 0.6 Baso % (Auto) 0.2 Immature Gran # (Auto) 0.02 Neut # (Auto) 7.51 H Lymph # (Auto) 0.90 L Whitley # (Auto) 0.53 Eos # (Auto) 0.05 Baso # (Auto) 0.02 PT INR APTT PTT Ratio Sodium 139 Potassium 4.7 Chloride 110 H Carbon Dioxide 25 Anion Gap 5.0 BUN 22 H Creatinine 1.27 H Est Cr Clr Drug Dosing 30.9 Est GFR ( Amer) 44.6 Est GFR (Non-Af Amer) 38.5 BUN/Creatinine Ratio 17.5 Glucose 167 H POC Glucose 138 H Estimat Average Glucose Hemoglobin A1c Calcium 8.6 Magnesium 1.9 Troponin I Specimen Hemolysis 09/12/19 09/12/19 09/12/19 05:21 05:21 05:45 WBC RBC Hgb Hct MCV MCH MCHC RDW Std Deviation RDW Coeff of Elton Plt Count MPV Immature Gran % (Auto) Neut % (Auto) Lymph % (Auto) Whitley % (Auto) Eos % (Auto) Baso % (Auto) Immature Gran # (Auto) Neut # (Auto) Lymph # (Auto) Whitley # (Auto) Eos # (Auto) Baso # (Auto) PT INR APTT PTT Ratio Sodium Potassium Chloride Carbon Dioxide Anion Gap BUN Creatinine Est Cr Clr Drug Dosing Est GFR ( Amer) Est GFR (Non-Af Amer) BUN/Creatinine Ratio Glucose POC Glucose 131 H Estimat Average Glucose 140 Hemoglobin A1c 6.5 H Calcium Magnesium Troponin I 0.048 H* Specimen Hemolysis Medications Administered Current Inpatient Medications Acetaminophen (Tylenol) 650 mg PO Q4H PRN PRN Reason: pain/fever Stop: 10/11/19 23:11 Dextrose (Dextrose 50%) 25 - 50 ml IV UD PRN; Protocol PRN Reason: Hypoglycemia Protocol Stop: 10/11/19 23:29 Glucagon (Glucagen) 1 mg IM UD PRN; Protocol PRN Reason: Hypoglycemia Protocol Stop: 10/11/19 23:29 Glucose (Glucose 40%) 15 - 30 gm PO UD PRN; Protocol PRN Reason: Hypoglycemia Protocol Stop: 10/11/19 23:29 Glucose (Dex4 Glucose) 4 - 8 tabs PO UD PRN; Protocol PRN Reason: Hypoglycemia Protocol Stop: 10/11/19 23:29 Hydralazine HCl (Hydralazine Hcl) 5 mg IV Q4H PRN PRN Reason: Hypertension Stop: 10/11/19 23:11 Sodium Chloride (Nss 1000ml) 1,000 mls @ 80 mls/hr IV .[id number] GALLITO Stop: 10/11/19 23:11 Last Infusion: 09/12/19 06:17 Dose: 80 mls/hr Documented by: Insulin Aspart (Novolog Flexpen) 0 units SC Q6 GALLITO Stop: 10/12/19 00:00 Last Admin: 09/12/19 06:10 Dose: Not Given Documented by: Metoprolol Tartrate (Lopressor) 25 mg PO BID GALLITO Stop: 10/11/19 23:11 Last Admin: 09/12/19 00:04 Dose: 25 mg Documented by: Miscellaneous (Carbohydrates For Hypoglycemia) 15 - 30 gm PO UD PRN PRN Reason: Hypoglycemia Treatment Stop: 10/11/19 23:29 Morphine Sulfate (Morphine Sulfate) 3 mg IV Q4H PRN PRN Reason: Pain Stop: 09/25/19 23:11 Last Admin: 09/12/19 05:40 Dose: 3 mg Documented by: Multivitamins/Minerals (Multivitamin W/ Minerals Tab) 1 tab PO DAILY GALLITO Stop: 10/12/19 08:59 Ondansetron HCl (Zofran) 4 mg IV Q6H PRN PRN Reason: Nausea Stop: 10/11/19 23:11 Polyethylene Glycol (Miralax Powder Packet) 17 gm PO DAILY PRN PRN Reason: Constipation Stop: 10/11/19 23:11 Simvastatin (Zocor) 20 mg PO DAILY GALLITO Stop: 10/12/19 08:59 (1) Closed fracture of right hip Encounter type: initial encounter Qualified Code(s): S72.001A - Fracture of unspecified part of neck of right femur, initial encounter for closed fracture
[2019-09-12] MEDS: SODIUM CHLORIDE 0.9% 1000ML 1,000 ML IV SCH ×2 (13:45→19:41)
[2019-09-12] MEDS ORDERED: CEFAZOLIN 1000MG 1,000 MG/7.5 ML SYR IV ONE (14:34)
[2019-09-12] MEDS ORDERED: CEFAZOLIN 1,000 MG/7.5 ML IV PUSH IV ONE (14:36)
--- NOTE | 2019-09-12 14:38 | Electrocardiogram Report ---
Test Reason : Blood Pressure : / mmHG Vent. Rate : 058 BPM Atrial Rate : 058 BPM P-R Int : 242 ms QRS Dur : 092 ms QT Int : 422 ms P-R-T Axes : 017 000 002 degrees QTc Int : 414 ms Sinus bradycardia with 1st degree A-V block Possible Old Septal infarct Nonspecific ST and T wave abnormality Anterolateral leads Abnormal ECG When compared with ECG of 25-SEP-2009 09:39, [place] interval has increased Criteria for Old Septal infarct is now Present Otherwise no significant change Confirmed by Jama Castanon ([id number]) on 09/12/2019 2:38:02 PM Referred By: REFERRED SELF Confirmed By:Jama Castanon
--- NOTE | 2019-09-12 14:45 | Electrocardiogram Report ---
Test Reason : Blood Pressure : / mmHG Vent. Rate : 059 BPM Atrial Rate : 059 BPM P-R Int : 244 ms QRS Dur : 086 ms QT Int : 420 ms P-R-T Axes : 009 -02 006 degrees QTc Int : 415 ms Sinus bradycardia with 1st degree A-V block Nonspecific T wave abnormality Lateral leads Abnormal ECG When compared with ECG of 11-SEP-2019 18:12, Criteria for Septal infarct are no longer Present Otherwise no significant change Confirmed by Jama Castanon ([id number]) on 09/12/2019 2:45:10 PM Referred By: REFERRED SELF Confirmed By:Jama Castanon
--- NOTE | 2019-09-12 14:55 | Anesthesiology Consultation ---
Date of Service September 12, 2019 Assessment & Plan Consults Requested I have reviewed the draft cardiac note and talked to jose ramon zelaya. While there is a slight increase in troponin values, the patient looks good clinically. echo showed no signs of ischemia. Pt most recent ekg is improved. Pt remains low risk and the risk of not fixing the hip would continue to incerease. ASA ASA3 Proposed Anesthesia Anesthesia Type: General Regional Regional Laterality: Right Site: other (fasica illiaca) Risk / Benefits Reviewed With: PT / POA / Parent / Guardian, Accepts Plan and Informed Consent Obtained History Surgery Operation Date: 09/12/19 14:00 Proposed Procedures p Right Bipolar Hemiarthroplasty Hip - Cullen Alas MD Height/Weight Height: 5 ft 4 in Weight: 68.9 kg Allergies Allergy/AdvReac Type Severity Reaction Status Date / Time egg AdvReac Gastrointestinal Verified 09/12/19 15:02 Upset Medications Home Medications Medication Instructions Recorded Confirmed Last Taken glipizide 10 mg PO DAILY 09/11/19 09/11/19 Unknown lisinopril 40 mg PO DAILY 09/11/19 09/11/19 Unknown metformin 500 mg PO DAILY 09/11/19 09/11/19 Unknown metoprolol tartrate 25 mg PO BID 09/11/19 09/11/19 Unknown srffmtctnhtp-wlppfxmd-jftbhm 1 tab PO DAILY 09/11/19 09/11/19 Unknown [Multivitamin 50 Plus] simvastatin 20 mg PO DAILY 09/11/19 09/11/19 Unknown Active Medications Generic Name Dose Route Start Last Admin Trade Name Freq PRN Reason Stop Dose Admin Sodium Chloride 1,000 mls @ 80 mls/hr 09/11/19 23:12 09/12/19 13:45 Nss 1000ml IV 10/11/19 23:11 80 mls/hr .[id number] GALLITO Administration Insulin Aspart 0 units 09/12/19 00:00 09/12/19 14:13 Novolog Flexpen SC 10/12/19 00:00 Not Given Q6 GALLITO Metoprolol Tartrate 25 mg 09/11/19 23:12 09/12/19 11:26 Lopressor PO 10/11/19 23:11 25 mg BID GALLITO Administration Morphine Sulfate 3 mg 09/11/19 23:12 09/12/19 05:40 Morphine Sulfate IV 09/25/19 23:11 3 mg Q4H PRN Administration Pain Past Medical History Medical History No pertinent past medical history Exercise / Class Metabolic Activity II 4-5 Yardwork/Stairs/Walk up hill Past Family History Family History Other No pertinent family history Past Surgical History Surgical History History of total replacement of left shoulder joint Status post right knee replacement Past Anesthesia History No Hx of Anesthesia Complications and No Family Hx of Anesthesia Complications History of PONV No Hx of PONV and No Hx of Motion Sickness Social History Smoking Status: Former smoker Hx Alcohol Use: No Hx Substance Use: No Review of Systems denies fever/cough/ colds/ chest pain/ SOB/ LASHAWN Constitutional: no fever and no chills Respiratory: no cough and no dyspnea denies LASHAWN Cardiovascular: no chest pain and no dyspnea on exertion Physical Exam Vital Signs Last Vital Signs Temp 36.8 C 09/12/19 12:49 Pulse 64 09/12/19 12:49 Resp 16 09/12/19 12:49 BP 133/62 09/12/19 12:49 Pulse Ox 96 09/12/19 12:49 ENMT Mouth: no TMJ abnormality and no dentition abnormality Thyromental Distance: > or= 3.5 Finger Breadths Mallampati Class: II Neck neck extension not limited Respiratory normal respiratory effort; no respiratory distress Auscultation: lungs clear to auscultation bilaterally Cardiovascular Rate/Rhythm: regular rate and regular rhythm Neurologic moves all extremities Psychiatric Orientation: alert and oriented x 3 Testing Laboratory Results 09/12/19 05:21 09/12/19 05:21 PT 10.2 Seconds (9.0-12.0) 09/11/19 17:48 INR 1.0 (0.9-1.1) 09/11/19 17:48 APTT 26.8 Seconds (21.0-31.0) 09/11/19 17:48 Hemoglobin A1c 6.5 % (4.5-5.6) H 09/12/19 05:21 09/12/19 09/12/19 14:02 05:45 POC Glucose 116 H 131 H
[2019-09-12] MEDS ORDERED: BACITRACIN INJ 50,000 UNIT VIAL ONE (14:56)
[2019-09-12] MEDS ORDERED: THROMBIN FOR SOLN 20000 UNIT KIT ONE (14:56)
--- NOTE | 2019-09-12 15:06 | History & Physical Bridge Note ---
Date of Service September 12, 2019 History & Physical Bridge Note I have examined the patient, reviewed the History & Physical and in the interval since the performance of the History & Physical I have noted the following changes of clinical significance: no changes noted
[2019-09-12] MEDS ORDERED: BUPIVACAINE/EPINEPHRINE 0.25% 1:200,000 30 ML VIAL ONE (15:08)
[2019-09-12] MEDS ORDERED: HYDROmorphone INJ 2 MG/ML SYR/VIAL IV PRN (15:09)
[2019-09-12] MEDS ORDERED: ATROPINE SULFATE 0.1 MG/ML 10ML SYR IV PRN (15:09)
[2019-09-12] MEDS ORDERED: ePHEDrine sulfate 50 MG/ML AMP IV PRN (15:09)
[2019-09-12] MEDS ORDERED: PROPOFOL IV EMULSION 10 MG/ML 20 ML VIAL IV ONE (15:09)
[2019-09-12] MEDS ORDERED: ONDANSETRON INJ 2 MG/ML 2 ML VIAL ONE (15:09)
[2019-09-12] MEDS ORDERED: GLYCOPYRROLATE 0.2 MG/ML VIAL ONE (15:09)
[2019-09-12] MEDS ORDERED: fentaNYL citrate 100 MCG/2 ML VIAL IV PRN (15:09)
[2019-09-12] MEDS ORDERED: fentaNYL citrate 100 MCG/2 ML VIAL ONE ×2 (15:09)
[2019-09-12] MEDS ORDERED: ONDANSETRON INJ 2 MG/ML 2 ML VIAL IV PRN (15:09)
[2019-09-12] MEDS ORDERED: MIDAZOLAM HCL 1 MG/ML 2ML VIAL IV STA (15:09)
[2019-09-12] MEDS ORDERED: NEOSTIGMINE METHYLSULFATE 5 MG/5 ML SYR ONE (15:09)
[2019-09-12] MEDS ORDERED: DEXAMETHASONE SOD INJ 4 MG/ML VIAL ONE (15:09)
[2019-09-12] MEDS ORDERED: LIDOCAINE HCL 2% 2 ML VIAL/AMP(20MG/ML) INFIL ONE (15:09)
--- NOTE | 2019-09-12 15:09 | Orthopedic Progress Note ---
Date of Service September 12, 2019 Assessment & Plan (1) Closed fracture of right hip: Displaced femoral neck fracture Garden 3 type fracture hairline fracture lesser trochanter. No pre-existing osteoarthritis in the hip. Patient is a household ambulator with minor community ambulation does not drive any longer. I believe with her comorbidities best procedure would be a cemented bipolar hemiarthroplasty. Discussed this with patient and her daughter and consent was signed today. Admission and Anticipated Discharge Date Admission Date: September 11, 2019 Subjective Right hip pain Review of Systems Review of Systems: Usual state of health prior to injury does not have any chest pain Physical Exam Physical Exam: Right leg shortened and externally rotated and painful with any range of motion consistent with hip fracture Results & Data ([facility]) Vital Signs (Past 12 Hours) Vital Signs Temp Pulse Pulse Resp BP Pulse Ox 09/12/19 14:44 36.8 C 64 21 150/90 H 94 09/12/19 12:49 36.8 C 64 16 133/62 96 09/12/19 07:36 36.7 C 70 18 150/75 H 93 09/12/19 05:32 80 146/69 H (1) Closed fracture of right hip Encounter type: initial encounter Qualified Code(s): S72.001A - Fracture of unspecified part of neck of right femur, initial encounter for closed fracture
[2019-09-12] MEDS ORDERED: MIDAZOLAM HCL 1 MG/ML 2ML VIAL ONE (15:11)
--- NOTE | 2019-09-12 17:50 | Post Operative Brief Note ---
Immediate Post Op Note v1 Date of Surgery September 12, 2019 Pre & Post Diagnosis Operation Date: 09/12/19 14:00 Pre-Op Diagnosis: Displaced Femoral Neck Fracture Right Hip Post-Op Diagnosis: Displaced Femoral Neck Fracture Right Hip I identified the patient and participated in the time-out.: Yes Procedure Operation Date: 09/12/19 14:00 Actual Procedures p Right Bipolar Hemiarthroplasty Hip Cemented(Right) - Cullen Alas MD Surgeon Cullen Alas MD [employer] OUMAR Dinh Estimated Blood Loss 50 Findings Consistent with Post-Op Diagnosis Specimens Femoral head Drains Rivera Catheter (16fr) and Hemovac Drain (1/8" Round, 400cc evacuator) Anesthesia Type General Complications none Disposition Accompanied Patient To Recovery: No Disposition: Recovery Room Overlapping Procedure I was immediately available: during the entire case.
--- NOTE | 2019-09-12 18:02 | Operative Report ---
Post Operative Report Pre & Post Diagnosis Operation Date: 09/12/19 14:00 Pre-Op Diagnosis: Displaced Femoral Neck Fracture Right Hip Post-Op Diagnosis: Displaced Femoral Neck Fracture Right Hip I identified the patient and participated in the time-out.: Yes Procedure Operation Date: 09/12/19 14:00 Actual Procedures p Right Bipolar Hemiarthroplasty Hip Cemented(Right) - Cullen Alas MD Surgeon Cullen Alsa MD Derrickman Helper OUMAR Dinh Estimated Blood Loss 50 Findings Consistent with Post-Op Diagnosis Specimens Femoral head Drains 2 Hemovac Anesthesia Type General Complications none Disposition Accompanied Patient To Recovery: No Disposition: Recovery Room Indications 84-year-old female primary household ambulator but some community ambulation. Had a fall and fractured right hip. CT scan and x-rays demonstrate significantly displaced femoral neck fracture with head rotated posteriorly off the neck. Possible fracture line extending down the lesser tuberosity. No evidence of any tumor. Description of Procedure Patient was taken to the operating room this is under anesthesia. The patient was placed supine on the operating table and the sacral pad. The hip was sterilely prepped and draped in usual sterile fashion. A Boyd-type approach was performed to the hip. A longitudinal incision was made over the hip. The skin was incised sharply and the subcutaneous tissues were divided down to the fascia. Subcutaneous bleeders were cauterized. The fascia ozzie was divided l ongitudinally. The gluteus medius was inspected and this demonstrated normal intact muscle and tendon. The medius was split between its anterior 40% and posterior 60%. The minimus was identified split longitudinally and reflected off of the capsule. An incision was made through the capsule extending up to the acetabulum leaving the acetabular labrum intact. A cuff of tissue of the medius was left on the greater trochanter for repair. The vastus lateralis was split for 3 cm. A muscular capsular flap was elevated off of the fracture. Femoral neck fracture demonstrated as a CT scan noted posterior displaced femoral neck fracture with the neck displaced anteriorly with a high neck fracture and posterior comminution intact lesser trochanter. The broach was used for a guide for the Biade C [employer] hip system. The neck cut was made approximately 15 mm proximal to the lesser trochanter in neutral anteversion. The remnants of the ligamentum teres was resected. The acetabulum demonstrated normal articular cartilage no damage. The acetabulum was sized for a size 46 component. There was a good suction fit with the trial. The femur was then exposed with flexion external rotation. The femoral canal was prepared with a box osteotome followed by canal reamer followed by sequential broaches up to a size 5 stem component. This had good fit and fill with the trial. Trial redu ction was performed with a -3 neck length bipolar trial. The hip was stable through flexion adduction and internal rotation and extension adduction and external rotation. Leg lengths demonstrated equal leg lengths. The trials removed and the canal was irrigated copiously with pulsatile lavage solution. The final component was the 132 degree neck angle size 5 cemented Accolade C stem Emprivo. The cement restrictor 12 mm medium was placed at appropriate depth and the canal was irrigated with a canal brush and a suction tampon and then Palacos cement was used to cement the implant. After the cement cured the 26 mm -3 offset femoral head was impacted onto the stem and then the 46 outer diameter 26 inner diameter bipolar head was assembled and snapped onto the head. The hip was reduced to the acetabulum and stability was verified and leg lengths were equal. The wound was copiously irrigated again with pulsatile lavage. 2 Hemovac drains were placed deep into the joint and brought out laterally. The gluteus medius was repaired with interrupted [id number] #1 Vicryl sutures repairing the split and then the minimus was repaired to the greater trochanter with transosseous #5 FiberWire suture Ga-Gabriel suture technique. The gluteus medius was repaired with transosseous #5 FiberWire sutures with Ga-Gabriel suture technique x2 and lateral row fixation with #2 Fi berWire figure of 8 sutures. The split in the medius was repaired with interrupted [id number] #1 Vicryl sutures and vastus lateralis split was repaired with dkorrk-ov-lskvn #1 Vicryl sutures.. The fascia ozzie was repaired with interrupted hfbgvb-xs-udlls #1 Vicryl sutures the subcutaneous tissue closed with large needle #2 Vicryl to close the large fatty layer and 2-0 Vicryl more superficial. The skin was closed with blake. Sterile dressings were applied. My physician field research assistant OUMAR Dinh functioned as rn first assistant throughout the surgery and assisted with positioning prepping draping leg position and soft tissue retraction instrument management and assisted in the outer closure and will participate in the postoperative care the patient. The patient tolerated the procedure well. I attest to the content of the Intraoperative Record and any orders documented therein. Any exceptions are noted below.
[2019-09-12] MEDS ORDERED: NALOXONE HCL 0.4 MG/1 ML VIAL/CARP IV PRN (18:11)
[2019-09-12] MEDS ORDERED: MAGNESIUM HYDROXIDE SUSP 30 ML UDC PO PRN (18:11)
[2019-09-12] MEDS ORDERED: bisacodyL 10 MG SUPP PR PRN (18:11)
[2019-09-12] MEDS ORDERED: SODIUM CHLORIDE 0.9% 1000ML 1,000 ML IV SCH (18:15)
--- NOTE | 2019-09-12 18:33 | XRay Report ---
XR hip 1V RT w pelvis CLINICAL HISTORY: IN PACU - A/P PELVIS and LATERAL HIP COMPARISON: 09/11/2019 DISCUSSION: Anatomic alignment post total right hip arthroplasty. Expected soft tissue postoperative change IMPRESSION: Anatomic alignment posttotal right hip arthroplasty. ACT 112: Negative or not required by law. The above report was generated using voice recognition software. It may contain grammatical, syntax or spelling errors. Electronically signed by: Srinivas Gutiérrez M.D. 09/12/2019 6:31 PM
--- NOTE | 2019-09-12 18:48 | Anesthesiology Progress Note ---
Date of Service September 12, 2019 Anesthesia Post Procedure Vital Signs Vital Signs: Temp Pulse Pulse Pulse Pulse Resp BP 09/12/19 18:40 73 17 09/12/19 18:30 93 H 17 09/12/19 18:20 88 17 09/12/19 18:13 36.1 C L 93 H 13 09/12/19 14:44 36.8 C 64 21 09/12/19 12:49 36.8 C 64 16 09/12/19 07:36 36.7 C 70 18 09/12/19 05:32 80 09/12/19 00:03 71 09/11/19 22:55 36.5 C 76 16 09/11/19 22:22 69 19 178/75 H 09/11/19 22:20 72 24 09/11/19 22:10 70 20 09/11/19 22:02 71 22 09/11/19 22:01 71 27 H 196/85 H 09/11/19 22:00 72 23 09/11/19 21:50 70 27 H 09/11/19 21:40 72 29 H 09/11/19 21:30 70 18 09/11/19 21:20 70 18 09/11/19 21:10 69 20 09/11/19 21:01 62 24 104/51 L 09/11/19 21:00 67 30 H 09/11/19 20:50 66 24 09/11/19 20:40 61 21 09/11/19 20:30 64 31 H 09/11/19 20:26 76 31 H 09/11/19 20:00 72 26 H 175/86 H 09/11/19 19:50 82 31 H 09/11/19 19:40 64 20 09/11/19 19:31 63 25 H 199/123 H 09/11/19 19:30 66 20 09/11/19 19:20 64 19 09/11/19 19:10 59 L 24 09/11/19 19:00 65 16 09/11/19 18:57 60 15 09/11/19 18:56 64 21 185/110 H 09/11/19 18:50 65 20 BP BP Pulse Ox 09/12/19 18:40 150/66 H 94 09/12/19 18:30 139/81 99 09/12/19 18:20 138/62 98 09/12/19 18:13 149/71 H 98 09/12/19 14:44 150/90 H 94 09/12/19 12:49 133/62 96 09/12/19 07:36 150/75 H 93 09/12/19 05:32 146/69 H 09/12/19 00:03 161/72 H 09/11/19 22:55 169/73 H 96 09/11/19 22:22 97 09/11/19 22:20 97 09/11/19 22:10 96 09/11/19 22:02 95 09/11/19 22:01 97 09/11/19 22:00 97 09/11/19 21:50 93 09/11/19 21:40 93 09/11/19 21:30 97 09/11/19 21:20 97 09/11/19 21:10 96 09/11/19 21:01 98 09/11/19 21:00 99 09/11/19 20:50 100 09/11/19 20:40 94 09/11/19 20:30 95 09/11/19 20:26 09/11/19 20:00 97 09/11/19 19:50 09/11/19 19:40 98 09/11/19 19:31 97 09/11/19 19:30 98 09/11/19 19:20 100 09/11/19 19:10 98 09/11/19 19:00 91 09/11/19 18:57 98 09/11/19 18:56 98 09/11/19 18:50 Pain Intensity Right Hip: Pain Intensity: 9 Transfer of Care Handoff Completed per policy Notes Mental Status: participated in evaluation Patient Amnestic to Procedure: Yes Nausea / Vomiting: adequately controlled Pain: adequately controlled Airway Patency, RR, SpO2: stable & adequate BP & HR: stable & adequate Hydration State: stable & adequate Anesthetic Complications: no major complications apparent Notes: Pt mildly confused post anesthesia - not unexpected due to the anesthetic and her age. Should improve as anesthesia clears.
[2019-09-12] MEDS ORDERED: PHARMACY GLYCEMIC MGMT CONSULT PRN (19:28)
--- NOTE | 2019-09-12 19:33 | Hospitalist Progress Note ---
Date of Service September 12, 2019 Assessment & Plan (1) Closed fracture of right hip: Present on admission after mechanical fall CT hip showed slightly displaced and distracted subcapital fracture right hip. Linear hairline extension to the lesser trochanter. CT head showed no acute intracranial findings S/P right Bipolar Hemiarthroplasty Hip Cemented performed by Dr. Alas today No post-op complication Continue incentive spirometry Continue Pain control PT/OT eval Monitor CBC Fall precaution (2) Troponin level elevated: Possible related to elevated creatinine Troponin on admission 0.04-->0.07 Denies any chest pain EKG showed nonspecific ST changes ECHO done showed no wall motion abnormality with EF btw 60-65 % Cardiology on board Case discussed with cardiology and ok to proceed with surgery Will continue trend trop continue monitor Diabetes Mos recent Hba1c 6.5 Will hold on Metformin and glipizide Continue insulin sliding scale Hypertension Lisinopril on hold BP stable DVT px on no anticoagulant due to recent surgery Code Status Full code Admission and Anticipated Discharge Date Admission Date: September 11, 2019 Subjective Pt was seen and examined Lying in bed with no different with daughter at bedside Pt just had surgery done and recovery very well Denies any pain currently Physical Exam Physical Exam: General- No acute distress Head- atraumatic Eyes- PERRL, EOMI, ENT- oropharynx clear Neck- supple, no JVD Lungs- clear to auscultation Heart- regular rhythm; no murmur Abdomen- normal bowel sounds, soft, nontender Extremities- no calf tenderness Neuro- alert, oriented x 3; PERRL, EOMI; no facial palsy; no dysarthria Skin- warm & dry Results & Data ([facility]) Vital Signs (Past 12 Hours) Vital Signs Temp Pulse Pulse Resp BP Pulse Ox 09/12/19 18:50 36.2 C L 72 18 135/80 93 09/12/19 18:40 73 17 150/66 H 94 09/12/19 18:30 93 H 17 139/81 99 09/12/19 18:20 88 17 138/62 98 09/12/19 18:13 36.1 C L 93 H 13 149/71 H 98 09/12/19 14:44 36.8 C 64 21 150/90 H 94 09/12/19 12:49 36.8 C 64 16 133/62 96 09/12/19 07:36 36.7 C 70 18 150/75 H 93 (1) Closed fracture of right hip Encounter type: initial encounter Qualified Code(s): S72.001A - Fracture of unspecified part of neck of right femur, initial encounter for closed fracture
[2019-09-12] MEDS ORDERED: LANTUS PER UNIT CHARGE SQ ONE (20:00)
--- NOTE | 2019-09-12 20:01 | Pharmacy Report ---
Glycemic Control Consultation - Date of Service September 12, 2019 - Scope Scope: Glycemic Pharmacist consulted for glycemic control and to write orders per [facility] inpatient glycemic control protocol. - Objective Weight: 68.9 kg Accuchecks BSG (last 24hrs): 09/11/19 09/12/19 09/12/19 23:38 05:21 05:45 Glucose 167 H POC Glucose 138 H 131 H 09/12/19 09/12/19 14:02 18:18 Glucose POC Glucose 116 H 165 H Laboratory Data (last 24hrs): 09/12/19 05:21 Potassium 4.7 Carbon Dioxide 25 Anion Gap 5.0 Creatinine 1.27 H Est Cr Clr Drug Dosing 30.9 HbA1c: Hemoglobin A1c 6.5 % (4.5-5.6) H 09/12/19 05:21 - Recent Pertinent Medications Outpatient Anti-diabetic Regimen: * metformin 500 mg PO daily * glipizide 10 mg PO daily * A1c = 6.5 % (09/12/19) The patient is currently receiving: * Correctional Insulin: Novolog Correction per scale ACHS Goal Range: Low 120 mg/dL - High 150 mg/dL Correction Factor: 30 mg/dL/unit Risk Factors for Insulin Resistance: * Steroids: Dexamethasone 8 mg IV x 1 intraop * Recent Surgery: POD #0 s/p right hemiarthroplasty * Diet: T2DM - Assessment & Plan Assessment & Plan: ASSESSMENT: * PY is an 84 year old female POD #0 s/p right hemiarthoplasty * Patient received 8 mg IV dexamethasone intraoperatively * Postop BSG in PACU was 165 mg/dL * BSGs since admission ranging 116-165 mg/dL * Per nursing, patient not hungry postop and did not eat dinner * Will not be overly aggressive given well controlled A1c, but will give some basal insulin given elevated fasting BSG this morning of 131 mg/dL and elevated postop BSG PLAN FOR INPATIENT GLYCEMIC CONTROL: * Holding outpatient oral diabetes medications * Basal insulin * Lantus 15 units (0.2 unit/kg) x 1 to cover steroids * Bolus insulin * NovoLog per scale ACHS or Q6hrs while NPO * Goal Range: Low 120 mg/dL - High 150 mg/dL * Correction Factor: 30 mg/dL/unit * Nutritional / Prandial insulin per carb ratio of 1 unit per 10 grams CHO consumed * Overnight checks at 00,04 with same parameters this evening * Please note that the plan above was derived based on current level of insulin resistance and hospital stress. These recommendations are appropriate for inpatient admission only. Plan of care upon discharge will need to be reassessed to avoid potential outpatient hypo/hyperglycemia. Thank you.
[2019-09-12] MEDS: SIMVASTATIN 20 MG TAB PO SCH (20:02)
[2019-09-12] MEDS: CEROVITE ADV FORMULA TAB PO SCH (20:02)
[2019-09-12] MEDS: SENNA 8.6 MG TAB PO SCH (20:53)
[2019-09-12] MEDS: CEFAZOLIN 1000MG 1,000 MG/7.5 ML SYR IV SCH (20:56)
[2019-09-13] MEDS: INSULIN ASPART 100 UNITS/ML 3 ML PEN SC SCH ×6 (00:25→21:29)
[2019-09-13] MEDS ORDERED: INSULIN ASPART 100 UNITS/ML 3 ML PEN SC SCH (02:00)
[2019-09-13] MEDS: CEFAZOLIN 1000MG 1,000 MG/7.5 ML SYR IV SCH (05:43)
[2019-09-13 06:40] LABS: Basophils # (auto) 0.02 K/uL (0-0.2); Basophils % (auto) 0.3 %; Eosinophils # (auto) 0.11 K/uL (0-0.5); Eosinophils % (auto) 1.4 %; Hematocrit (blood only) 31.8 % (37-47); Hemoglobin 10.5 g/dL (12.0-16.0); Immature Granulocytes # (auto) 0.02 K/uL (0.00-0.02); Immature Granulocytes % (auto) 0.3 %; Lymphocytes % (auto) 14.1 %; Mean Corpuscular Hemoglobin 32.5 pg (25-34); Mean Corpuscular Volume 98.5 fL (80-100); Mean Platelet Volume 9.7 fL (7.4-10.4); Monocytes # (auto) 0.45 K/uL (0.11-0.59); Monocytes % (auto) 5.8 %; Neutrophils # (auto) 6.12 K/uL (1.4-6.5); Neutrophils % (auto) 78.1 %; Platelet Count 179 K/uL (130-400); RDW Coefficient of Variation 13.8 % (11.5-14.5); RDW Standard Deviation 49.7 fL (36.4-46.3); Red Blood Count 3.23 M/uL (4.2-5.4); White Blood Count 7.82 K/uL (4.8-10.8)
[2019-09-13 07:16] LABS: BUN Creatinine Ratio 15.4 (10-20); Calcium 8.4 mg/dl (8.5-10.1); Creatinine Clr Calc Pharmacy 30.9 ml/min; Est GFR (African American) 44.6; Est GFR (Non-African American) 38.5; Potassium 4.4 mmol/L (3.5-5.1)
[2019-09-13 07:22] LABS: Troponin I 0.238 ng/ml (0-0.045)
[2019-09-13] MEDS: SODIUM CHLORIDE 0.9% 1000ML 1,000 ML IV SCH (08:01)
--- NOTE | 2019-09-13 08:29 | Anesthesiology Progress Note ---
Date of Service September 13, 2019 Anesthesia Post Procedure Vital Signs Vital Signs: Temp Pulse Pulse Pulse Resp BP Pulse Ox 09/13/19 07:20 36.3 C L 77 17 132/73 92 09/13/19 03:45 36.9 C 73 18 125/70 91 09/13/19 00:37 97 09/12/19 23:45 36.5 C 82 14 130/73 96 09/12/19 21:58 36.5 C 77 16 136/80 94 09/12/19 21:00 77 16 155/70 H 94 09/12/19 19:55 68 16 133/77 94 09/12/19 19:35 68 16 136/75 95 09/12/19 19:00 36.5 C 79 18 152/70 H 93 09/12/19 18:50 36.2 C L 72 18 135/80 93 09/12/19 18:40 73 17 150/66 H 94 09/12/19 18:30 93 H 17 139/81 99 09/12/19 18:20 88 17 138/62 98 09/12/19 18:13 36.1 C L 93 H 13 149/71 H 98 09/12/19 14:44 36.8 C 64 21 150/90 H 94 09/12/19 12:49 36.8 C 64 16 133/62 96 Pain Intensity Right Hip: Pain Intensity: 9 Notes Mental Status: alert / awake / arousable and participated in evaluation Patient Amnestic to Procedure: Yes Nausea / Vomiting: adequately controlled Pain: adequately controlled Airway Patency, RR, SpO2: stable & adequate BP & HR: stable & adequate Hydration State: stable & adequate Anesthetic Complications: no major complications apparent and Pt Satisfied with anesthetic care
--- NOTE | 2019-09-13 08:34 | Orthopedic Progress Note ---
Date of Service September 13, 2019 Assessment & Plan (1) Closed fracture of right hip: POD #1 Right hip bipolar hemiarthroplasty PT/ OT DVT proph- Lovenox D/C plans- Rehab As per medicine- Troponin elevated again- medicine/ cardiology aware Admission and Anticipated Discharge Date Admission Date: September 11, 2019 Subjective POD #1 Lying in bed with no different with daughter at bedside Pt just had surgery done and recovery very well Denies any pain currently Denies SOB/ CP/ N/V. Daughter states she had a bit of confusion overnight Physical Exam Physical Exam: Right hip silverlon dressing c/d/i, no drainage. Toes/ ankle mobile No calf tenderness. A&Ox3. N/V+. Results & Data ([facility]) Vital Signs (Past 12 Hours) Vital Signs Temp Pulse Pulse Resp BP Pulse Ox 09/13/19 07:20 36.3 C L 77 17 132/73 92 09/13/19 03:45 36.9 C 73 18 125/70 91 09/13/19 00:37 97 09/12/19 23:45 36.5 C 82 14 130/73 96 09/12/19 21:58 36.5 C 77 16 136/80 94 09/12/19 21:00 77 16 155/70 H 94 (1) Closed fracture of right hip Encounter type: initial encounter Qualified Code(s): S72.001A - Fracture of unspecified part of neck of right femur, initial encounter for closed fracture
[2019-09-13] MEDS: HYDROCODONE/ACETAMOPHEN 5/325MG TAB PO PRN ×3 (09:22→21:02)
[2019-09-13] MEDS: SIMVASTATIN 20 MG TAB PO SCH (09:23)
[2019-09-13] MEDS: CEROVITE ADV FORMULA TAB PO SCH (09:23)
[2019-09-13] MEDS: METOPROLOL TARTRATE 25 MG TAB PO SCH ×2 (09:23→21:01)
--- NOTE | 2019-09-13 09:49 | Pharmacy Report ---
Pharmacy Glycemic Short Note 2 - Date of Service September 13, 2019 - Glycemic Short BSG Results (Last 24 hours): 09/12/19 09/12/19 09/12/19 14:02 18:18 20:43 Glucose POC Glucose 116 H 165 H 207 H 09/12/19 09/13/19 09/13/19 23:45 03:45 06:06 Glucose 123 H POC Glucose 156 H 140 H 09/13/19 08:17 Glucose POC Glucose 110 H OUTPATIENT ANTIDIABETIC REGIMEN: * metformin 500 mg PO daily * glipizide 10 mg PO daily * A1c = 6.5 % (09/12/19) Risk Factors for Insulin Resistance: * Steroids: Dexamethasone 8 mg IV x 1 intraop * Recent Surgery: POD #1 s/p right hemiarthroplasty * Diet: T2DM - Assessment & Plan ASSESSMENT: 09/12 * Patient received 19 units of insulin yesterday, 15 of this being basal * Fasting BSG = 123 mg/dL * Patient will not receive further steroids so do not anticipate further elevation of BSG from this * Patient's troponin has bumped and medicine/cardiology following * Will plan to loosen Novolog parameters later today, when Decadron is wearing off * Will also provide a scale for reduced Lantus dosing. Anticipate small dose will be needed in the setting of requiring 2 oral agents at home. 09/11 * PY is an 84 year old female POD #0 s/p right hemiarthoplasty * Patient received 8 mg IV dexamethasone intraoperatively * Postop BSG in PACU was 165 mg/dL * BSGs since admission ranging 116-165 mg/dL * Per nursing, patient not hungry postop and did not eat dinner * Will not be overly aggressive given well controlled A1c, but will give some basal insulin given elevated fasting BSG this morning of 131 mg/dL and elevated postop BSG PLAN FOR INPATIENT GLYCEMIC CONTROL: * Hold outpatient oral diabetes medications - consider resuming metformin prior to discharge when renal function adequate * Basal insulin - reduce dose and provide a scale * Lantus qHS: * 6 units for BSG 180 or less * 12 units for BSG > 180 * Bolus insulin - loosen starting with dinner * NovoLog per scale ACHS or Q6hrs while NPO * Goal Range: Low 120 mg/dL - High 150 mg/dL * Correction Factor: 35 mg/dL/unit * Nutritional / Prandial insulin per carb ratio of 1 unit per 12 grams CHO consumed PLAN FOR DISCHARGE: * A1c = 6.5% on 09/12/19, which is at goal for patient's age/comorbidities * Can resume metformin and glipizide on discharge, as long as no contraindications present
--- NOTE | 2019-09-13 10:34 | Cardiology Progress Note ---
Date of Service September 13, 2019 Assessment & Plan (1) Closed fracture of right hip: (2) History of total replacement of left shoulder joint: (3) Hypertension: (4) Diabetes type 2, controlled: (5) Troponin level elevated: By the Darin criteria this patient is low risk for this surgery estimated to be 0.4%. She has a very borderline elevation of her troponin and I believe that it is most likely due to lab error. I would however wait for the additional troponin studies that are ordered. If the troponin is normal and does not elevate, then I believe she can proceed to surgery. I will also repeat her EKG due to the nonspecific ST and T wave changes to be certain there is not a progre ssion. I reviewed her echocardiogram and there were no wall motion abnormalities that would suggest ischemic heart disease or significant valvular pathology. Supervising Physician Co-Signing Physician Notes I have discussed the case with Gayle Cruz. This patient did well through surgery. At this point cardiology will sign off the case. Please reconsult us if necessary. Results & Data Vital Signs (Past 12 Hours) Vital Signs Temp Pulse Pulse Resp BP Pulse Ox 09/13/19 07:20 36.3 C L 77 17 132/73 92 09/13/19 03:45 36.9 C 73 18 125/70 91 09/13/19 00:37 97 09/12/19 23:45 36.5 C 82 14 130/73 96 Laboratory Results 09/13/19 09/13/19 09/13/19 Range/Units 08:17 06:06 06:06 WBC 7.82 (4.8-10.8) K/uL RBC 3.23 L (4.2-5.4) M/uL Hgb 10.5 L (12.0-16.0) g/dL Hct 31.8 L (37-47) % MCV 98.5 (80-100) fL MCH 32.5 (25-34) pg MCHC 33.0 (32-36) g/dL RDW Std Deviation 49.7 H (36.4-46.3) fL RDW Coeff of Elton 13.8 (11.5-14.5) % Plt Count 179 (130-400) K/uL MPV 9.7 (7.4-10.4) fL Immature Gran % (Auto) 0.3 % Neut % (Auto) 78.1 % Lymph % (Auto) 14.1 % [place] % (Auto) 5.8 % Eos % (Auto) 1.4 % Baso % (Auto) 0.3 % Immature Gran # (Auto) 0.02 (0.00-0.02) K/uL Neut # (Auto) 6.12 (1.4-6.5) K/uL Lymph # (Auto) 1.10 L (1.2-3.4) K/uL [place] # (Auto) 0.45 (0.11-0.59) K/uL Eos # (Auto) 0.11 (0-0.5) K/uL Baso # (Auto) 0.02 (0-0.2) K/uL Sodium 139 (136-145) mmol/L Potassium 4.4 (3.5-5.1) mmol/L Chloride 111 H (98-107) mmol/L Carbon Dioxide 23 (21-32) mmol/L Anion Gap 5.0 (3-11) BUN 20 H (7-18) mg/dl Creatinine 1.27 H (0.6-1.2) mg/dl Est Cr Clr Drug Dosing 30.9 ml/min Est GFR ( Amer) 44.6 Est GFR (Non-Af Amer) 38.5 BUN/Creatinine Ratio 15.4 (10-20) Glucose 123 H (70-99) mg/dl POC Glucose 110 H (70-99) mg/dl Calcium 8.4 L (8.5-10.1) mg/dl Troponin I 0.238 H* (0-0.045) ng/ml 09/13/19 09/12/19 09/12/19 Range/Units 03:45 23:45 20:43 WBC (4.8-10.8) K/uL RBC (4.2-5.4) M/uL Hgb (12.0-16.0) g/dL Hct (37-47) % MCV (80-100) fL MCH (25-34) pg MCHC (32-36) g/dL RDW Std Deviation (36.4-46.3) fL RDW Coeff of Elton (11.5-14.5) % Plt Count (130-400) K/uL MPV (7.4-10.4) fL Immature Gran % (Auto) % Neut % (Auto) % Lymph % (Auto) % [place] % (Auto) % Eos % (Auto) % Baso % (Auto) % Immature Gran # (Auto) (0.00-0.02) K/uL Neut # (Auto) (1.4-6.5) K/uL Lymph # (Auto) (1.2-3.4) K/uL [place] # (Auto) (0.11-0.59) K/uL Eos # (Auto) (0-0.5) K/uL Baso # (Auto) (0-0.2) K/uL Sodium (136-145) mmol/L Potassium (3.5-5.1) mmol/L Chloride (98-107) mmol/L Carbon Dioxide (21-32) mmol/L Anion Gap (3-11) BUN (7-18) mg/dl Creatinine (0.6-1.2) mg/dl Est Cr Clr Drug Dosing ml/min Est GFR ( Amer) Est GFR (Non-Af Amer) BUN/Creatinine Ratio (10-20) Glucose (70-99) mg/dl POC Glucose 140 H 156 H 207 H (70-99) mg/dl Calcium (8.5-10.1) mg/dl Troponin I (0-0.045) ng/ml 09/12/19 09/12/19 09/12/19 Range/Units 19:43 18:18 14:02 WBC (4.8-10.8) K/uL RBC (4.2-5.4) M/uL Hgb (12.0-16.0) g/dL Hct (37-47) % MCV (80-100) fL MCH (25-34) pg MCHC (32-36) g/dL RDW Std Deviation (36.4-46.3) fL RDW Coeff of Elton (11.5-14.5) % Plt Count (130-400) K/uL MPV (7.4-10.4) fL Immature Gran % (Auto) % Neut % (Auto) % Lymph % (Auto) % [place] % (Auto) % Eos % (Auto) % Baso % (Auto) % Immature Gran # (Auto) (0.00-0.02) K/uL Neut # (Auto) (1.4-6.5) K/uL Lymph # (Auto) (1.2-3.4) K/uL [place] # (Auto) (0.11-0.59) K/uL Eos # (Auto) (0-0.5) K/uL Baso # (Auto) (0-0.2) K/uL Sodium (136-145) mmol/L Potassium (3.5-5.1) mmol/L Chloride (98-107) mmol/L Carbon Dioxide (21-32) mmol/L Anion Gap (3-11) BUN (7-18) mg/dl Creatinine (0.6-1.2) mg/dl Est Cr Clr Drug Dosing ml/min Est GFR ( Amer) Est GFR (Non-Af Amer) BUN/Creatinine Ratio (10-20) Glucose (70-99) mg/dl POC Glucose 165 H 116 H (70-99) mg/dl Calcium (8.5-10.1) mg/dl Troponin I 0.195 H* (0-0.045) ng/ml 09/12/19 Range/Units 11:37 WBC (4.8-10.8) K/uL RBC (4.2-5.4) M/uL Hgb (12.0-16.0) g/dL Hct (37-47) % MCV (80-100) fL MCH (25-34) pg MCHC (32-36) g/dL RDW Std Deviation (36.4-46.3) fL RDW Coeff of Elton (11.5-14.5) % Plt Count (130-400) K/uL MPV (7.4-10.4) fL Immature Gran % (Auto) % Neut % (Auto) % Lymph % (Auto) % [place] % (Auto) % Eos % (Auto) % Baso % (Auto) % Immature Gran # (Auto) (0.00-0.02) K/uL Neut # (Auto) (1.4-6.5) K/uL Lymph # (Auto) (1.2-3.4) K/uL [place] # (Auto) (0.11-0.59) K/uL Eos # (Auto) (0-0.5) K/uL Baso # (Auto) (0-0.2) K/uL Sodium (136-145) mmol/L Potassium (3.5-5.1) mmol/L Chloride (98-107) mmol/L Carbon Dioxide (21-32) mmol/L Anion Gap (3-11) BUN (7-18) mg/dl Creatinine (0.6-1.2) mg/dl Est Cr Clr Drug Dosing ml/min Est GFR ( Amer) Est GFR (Non-Af Amer) BUN/Creatinine Ratio (10-20) Glucose (70-99) mg/dl POC Glucose (70-99) mg/dl Calcium (8.5-10.1) mg/dl Troponin I 0.071 H* (0-0.045) ng/ml Diagnostic Findings EKG reviewed from this morning: Normal sinus rhythm Septal infarct , age undetermined Abnormal ECG When compared with ECG of 12-SEP-2019 12:08, [place] interval has decreased Septal infarct is now Present Nonspecific T wave abnormality has replaced inverted T waves Medications Administered Current Inpatient Medications Acetaminophen (Tylenol) 650 mg PO Q4H PRN PRN Reason: pain/fever Stop: 10/11/19 23:11 Hydrocodone Bitart/Acetaminophen ([place] 5/325) 1 tab PO Q4H PRN PRN Reason: Pain Stop: 09/27/19 08:28 Last Admin: 09/13/19 09:22 Dose: 1 tab Documented by: Bisacodyl (Dulcolax) 10 mg [place] DAILY PRN PRN Reason: Constipation Stop: 10/12/19 18:10 Dextrose (Dextrose 50%) 25 - 50 ml IV UD PRN; Protocol PRN Reason: Hypoglycemia Protocol Stop: 10/11/19 23:29 Diphenhydramine HCl (Benadryl Capsule) 25 mg PO Q8H PRN PRN Reason: Itching Stop: 10/12/19 18:10 Enoxaparin Sodium (Lovenox) 40 mg SQ QAM [facility] Stop: 10/13/19 08:59 Glucagon (Glucagen) 1 mg IM UD PRN; Protocol PRN Reason: Hypoglycemia Protocol Stop: 10/11/19 23:29 Glucose (Glucose 40%) 15 - 30 gm PO UD PRN; Protocol PRN Reason: Hypoglycemia Protocol Stop: 10/11/19 23:29 Glucose (Dex4 Glucose) 4 - 8 tabs PO UD PRN; Protocol PRN Reason: Hypoglycemia Protocol Stop: 10/11/19 23:29 Hydralazine HCl (Hydralazine Hcl) 5 mg IV Q4H PRN PRN Reason: Hypertension Stop: 10/11/19 23:11 Sodium Chloride (Nss 1000ml) 1,000 mls @ 80 mls/hr IV .[id number] [facility] Stop: 10/11/19 23:11 Last Admin: 09/13/19 08:01 Dose: 80 mls/hr Documented by: Insulin Aspart (Novolog Flexpen) 0 units SC ACHS [facility] Stop: 09/13/19 15:00 Last Admin: 09/13/19 09:24 Dose: 1 units Documented by: Insulin Aspart (Novolog Flexpen) 0 units SC [facility] Stop: 10/13/19 16:29 Insulin Glargine (Lantus Per Unit) 0 units SQ HS [facility]; Protocol Stop: 09/13/19 23:00 Magnesium Hydroxide (Milk Of Magnesia) 30 ml PO Q6H PRN PRN Reason: Constipation Stop: 10/12/19 18:10 Metoprolol Tartrate (Lopressor) 25 mg PO BID [facility] Stop: 10/11/19 23:11 Last Admin: 09/13/19 09:23 Dose: 25 mg Documented by: Miscellaneous (Carbohydrates For Hypoglycemia) 15 - 30 gm PO UD PRN PRN Reason: Hypoglycemia Treatment Stop: 10/11/19 23:29 Miscellaneous Information (Consult Glycemic Management Pharmacy) 1 ea N/A UD PRN PRN Reason: Consult Stop: 10/12/19 19:27 Morphine Sulfate (Morphine Sulfate) 3 mg IV Q4H PRN PRN Reason: Pain Stop: 09/25/19 23:11 Last Admin: 09/12/19 05:40 Dose: 3 mg Documented by: Multivitamins/Minerals (Multivitamin W/ Minerals Tab) 1 tab PO DAILY [facility] Stop: 10/12/19 08:59 Last Admin: 09/13/19 09:23 Dose: 1 tab Documented by: Naloxone HCl (Narcan) 0.1 mg IV Q5M PRN PRN Reason: Oversedation/Resp Depression Stop: 10/12/19 18:10 Ondansetron HCl (Zofran) 4 mg IV Q6H PRN PRN Reason: Nausea Stop: 10/11/19 23:11 Last Admin: 09/12/19 19:41 Dose: 4 mg Documented by: Polyethylene Glycol (Miralax Powder Packet) 17 gm PO DAILY PRN PRN Reason: Constipation Stop: 10/11/19 23:11 Sennosides (Senokot) 17.2 mg PO HS [facility] Stop: 10/12/19 20:59 Last Admin: 09/12/19 20:53 Dose: Not Given Documented by: Simvastatin (Zocor) 20 mg PO DAILY [facility] Stop: 10/12/19 08:59 Last Admin: 09/13/19 09:23 Dose: 20 mg Documented by: (1) Closed fracture of right hip Encounter type: initial encounter Qualified Code(s): S72.001A - Fracture of unspecified part of neck of right femur, initial encounter for closed fracture
[2019-09-13] MEDS: ENOXAPARIN INJ 40 MG/0.4 ML SYR SQ SCH (13:20)
--- NOTE | 2019-09-13 16:41 | Electrocardiogram Report ---
Test Reason : Blood Pressure : / mmHG Vent. Rate : 078 BPM Atrial Rate : 078 BPM P-R Int : 202 ms QRS Dur : 084 ms QT Int : 368 ms P-R-T Axes : 006 -13 -01 degrees QTc Int : 419 ms Normal sinus rhythm Septal infarct , age undetermined Abnormal ECG When compared with ECG of 12-SEP-2019 12:08, [place] interval has decreased Septal infarct is now Present Nonspecific T wave abnormality has replaced inverted T waves in Lateral leads Confirmed by Bradford Hillman ([id number]) on 09/13/2019 4:41:16 PM Referred By: REFERRED SELF Confirmed By:Bradford Hillman
--- NOTE | 2019-09-13 19:34 | Hospitalist Progress Note ---
Date of Service September 13, 2019 Assessment & Plan (1) Closed fracture of right hip: Present on admission after mechanical fall CT hip showed slightly displaced and distracted subcapital fracture right hip. Linear hairline extension to the lesser trochanter. CT head showed no acute intracranial findings S/P day #1 right Bipolar Hemiarthroplasty Hip Cemented performed by Dr. Alas today No post-op complication Continue incentive spirometry Hgb 10.5 No blood tranfusion since pt is Jehov[employer] Witness Continue Pain control PT/OT eval Monitor CBC Fall precaution (2) Troponin level elevated: Possible related to elevated creatinine Troponin on admission 0.04, then peak to 0.238, now trending down to 0.212 Denies any chest pain EKG showed nonspecific ST changes ECHO done showed no wall motion abnormality with EF btw 60-65 % Cardiology on board Case discussed with cardiology, no additional cardiac testing continue monitor Diabetes Mos recent Hba1c 6.5 Will hold on Metformin and glipizide Continue insulin sliding scale Hypertension Lisinopril on hold BP stable DVT px on no anticoagulant due to recent surgery Code Status Full code Admission and Anticipated Discharge Date Admission Date: September 11, 2019 Subjective Pt was seen and examined Sitting in chair with no distress Pt said that she feels much better She said that had therapy today She said that pain control Denies any chest pain, palpitation and SOB Physical Exam Physical Exam: General- No acute distress Head- atraumatic Eyes- PERRL, EOMI, ENT- oropharynx clear Neck- supple, no JVD Lungs- clear to auscultation Heart- regular rhythm; no murmur Abdomen- normal bowel sounds, soft, nontender Extremities- no calf tenderness Neuro- alert, oriented x 3; PERRL, EOMI; no facial palsy; no dysarthria Skin- warm & dry Results & Data ([facility]) Vital Signs (Past 12 Hours) Vital Signs Temp Pulse Pulse Resp BP Pulse Ox 09/13/19 15:18 36.6 C 70 16 129/61 93 09/13/19 11:40 37 C 80 17 98/60 L 93 (1) Closed fracture of right hip Encounter type: initial encounter Qualified Code(s): S72.001A - Fracture of unspecified part of neck of right femur, initial encounter for closed fracture
[2019-09-13] MEDS ORDERED: LANTUS PER UNIT CHARGE SQ SCH (21:00)
[2019-09-13] MEDS: SENNA 8.6 MG TAB PO SCH (21:01)
[2019-09-14 05:57] LABS: Basophils # (auto) 0.02 K/uL (0-0.2); Basophils % (auto) 0.3 %; Eosinophils % (auto) 2.6 %; Hematocrit (blood only) 30.8 % (37-47); Hemoglobin 10.2 g/dL (12.0-16.0); Immature Granulocytes # (auto) 0.01 K/uL (0.00-0.02); Immature Granulocytes % (auto) 0.1 %; Lymphocytes # (auto) 1.24 K/uL (1.2-3.4); Lymphocytes % (auto) 16.1 %; Mean Corpuscular Hemoglobin 32.7 pg (25-34); Mean Corpuscular Hgb Conc 33.1 g/dL (32-36); Mean Corpuscular Volume 98.7 fL (80-100); Mean Platelet Volume 9.6 fL (7.4-10.4); Monocytes # (auto) 0.56 K/uL (0.11-0.59); Monocytes % (auto) 7.3 %; Neutrophils # (auto) 5.69 K/uL (1.4-6.5); Neutrophils % (auto) 73.6 %; Platelet Count 173 K/uL (130-400); RDW Coefficient of Variation 13.9 % (11.5-14.5); RDW Standard Deviation 49.9 fL (36.4-46.3); Red Blood Count 3.12 M/uL (4.2-5.4); White Blood Count 7.72 K/uL (4.8-10.8)
[2019-09-14 06:27] LABS: BUN Creatinine Ratio 15.3 (10-20); Calcium 8.5 mg/dl (8.5-10.1); Creatinine Clr Calc Pharmacy 30.4 ml/min; Est GFR (African American) 43.7; Est GFR (Non-African American) 37.7; Potassium 4.1 mmol/L (3.5-5.1)
--- NOTE | 2019-09-14 08:04 | Orthopedic Progress Note ---
Date of Service September 14, 2019 Assessment & Plan (1) Closed fracture of right hip: POD #2 Right hip bipolar hemiarthroplasty PT/ OT DVT proph- Lovenox D/C plans- Rehab As per medicine. Admission and Anticipated Discharge Date Admission Date: September 11, 2019 Subjective POD #2, Doing well. Denies SOB, CP, N/V, dizziness. Pain controlled well. Participated in PT, ambulating on walker in room. Physical Exam Physical Exam: Right hip silverlon c/d/i, no drainage. Toes/ ankle mobile. No calf tenderness. A&Ox3 N/V+. Results & Data ([facility]) Vital Signs (Past 12 Hours) Vital Signs Temp Pulse Pulse Resp BP BP Pulse Ox 09/13/19 23:00 36.8 C 66 16 109/66 92 09/13/19 20:59 70 123/71 (1) Closed fracture of right hip Encounter type: initial encounter Qualified Code(s): S72.001A - Fracture of unspecified part of neck of right femur, initial encounter for closed fracture
[2019-09-14] MEDS: INSULIN ASPART 100 UNITS/ML 3 ML PEN SC SCH ×4 (09:26→20:36)
[2019-09-14] MEDS: ENOXAPARIN INJ 40 MG/0.4 ML SYR SQ SCH (09:29)
[2019-09-14] MEDS: HYDROCODONE/ACETAMOPHEN 5/325MG TAB PO PRN (09:32)
[2019-09-14] MEDS: METOPROLOL TARTRATE 25 MG TAB PO SCH ×2 (09:32→20:35)
[2019-09-14] MEDS: SIMVASTATIN 20 MG TAB PO SCH (09:32)
[2019-09-14] MEDS: CEROVITE ADV FORMULA TAB PO SCH (09:32)
--- NOTE | 2019-09-14 18:56 | Hospitalist Progress Note ---
Date of Service September 14, 2019 Assessment & Plan (1) Closed fracture of right hip: Present on admission after mechanical fall CT hip showed slightly displaced and distracted subcapital fracture right hip. Linear hairline extension to the lesser trochanter. CT head showed no acute intracranial findings S/P day #2 right Bipolar Hemiarthroplasty Hip Cemented performed by Dr. Alas today No post-op complication Continue incentive spirometry Hgb 10.2 stable today No blood tranfusion since pt is Jehovah Witness Continue Pain control Fall precaution Waiting for placement to rehab (2) Troponin level elevated: Possible related to elevated creatinine Troponin on admission 0.04, then peak to 0.238, now trending down to 0.212 Denies any chest pain EKG showed nonspecific ST changes ECHO done showed no wall motion abnormality with EF btw 60-65 % Cardiology on board Case discussed with cardiology, no additional cardiac testing continue monitor Diabetes Mos recent Hba1c 6.5 Will hold on Metformin and glipizide Continue insulin sliding scale Hypertension Will resume Lisinopril in am BP stable DVT px on no anticoagulant due to recent surgery Code Status Full code Admission and Anticipated Discharge Date Admission Date: September 11, 2019 Subjective Pt was seen and examined Sitting in chair with no distress with daughter at bedside Pt said that she is doing good She said that she did well in therapy today Pt said that pain improves She said that she has been ambulated to the bathroom with assistance Denies any chest pain, palpitation and SOB Physical Exam Physical Exam: General- No acute distress Head- atraumatic Eyes- PERRL, EOMI, ENT- oropharynx clear Neck- supple, no JVD Lungs- clear to auscultation Heart- regular rhythm; no murmur Abdomen- normal bowel sounds, soft, nontender Extremities- no calf tenderness Neuro- alert, oriented x 3; PERRL, EOMI; no facial palsy; no dysarthria Skin- warm & dry Results & Data ([facility]) Vital Signs (Past 12 Hours) Vital Signs Temp Pulse Resp BP Pulse Ox 09/14/19 15:08 36.4 C L 78 16 110/68 94 09/14/19 08:37 36.6 C 91 H 18 144/93 H 94 (1) Closed fracture of right hip Encounter type: initial encounter Qualified Code(s): S72.001A - Fracture of unspecified part of neck of right femur, initial encounter for closed fracture
[2019-09-14] MEDS: SENNA 8.6 MG TAB PO SCH (20:36)
[2019-09-15 05:57] LABS: Basophils # (auto) 0.03 K/uL (0-0.2); Basophils % (auto) 0.5 %; Eosinophils # (auto) 0.22 K/uL (0-0.5); Eosinophils % (auto) 3.6 %; Hematocrit (blood only) 26.4 % (37-47); Hemoglobin 8.8 g/dL (12.0-16.0); Immature Granulocytes # (auto) 0.02 K/uL (0.00-0.02); Immature Granulocytes % (auto) 0.3 %; Lymphocytes # (auto) 1.19 K/uL (1.2-3.4); Lymphocytes % (auto) 19.4 %; Mean Corpuscular Hgb Conc 33.3 g/dL (32-36); Mean Platelet Volume 9.5 fL (7.4-10.4); Monocytes # (auto) 0.67 K/uL (0.11-0.59); Monocytes % (auto) 10.9 %; Neutrophils # (auto) 4.01 K/uL (1.4-6.5); Neutrophils % (auto) 65.3 %; Platelet Count 183 K/uL (130-400); RDW Coefficient of Variation 13.7 % (11.5-14.5); RDW Standard Deviation 48.3 fL (36.4-46.3); Red Blood Count 2.75 M/uL (4.2-5.4); White Blood Count 6.14 K/uL (4.8-10.8)
[2019-09-15 06:24] LABS: BUN Creatinine Ratio 16.2 (10-20); Calcium 8.5 mg/dl (8.5-10.1); Est GFR (African American) 51.9; Est GFR (Non-African American) 44.8; Potassium 4.1 mmol/L (3.5-5.1)
[2019-09-15] MEDS: CEROVITE ADV FORMULA TAB PO SCH (09:12)
[2019-09-15] MEDS: SIMVASTATIN 20 MG TAB PO SCH (09:12)
[2019-09-15] MEDS: METOPROLOL TARTRATE 25 MG TAB PO SCH ×2 (09:12→21:11)
[2019-09-15] MEDS: ENOXAPARIN INJ 40 MG/0.4 ML SYR SQ SCH (09:13)
[2019-09-15] MEDS: lisinopriL 40 MG TAB PO SCH (09:13)
[2019-09-15] MEDS: INSULIN ASPART 100 UNITS/ML 3 ML PEN SC SCH ×4 (09:18→21:14)
[2019-09-15] MEDS: HYDROCODONE/ACETAMOPHEN 5/325MG TAB PO PRN ×2 (09:34→16:53)
--- NOTE | 2019-09-15 10:35 | Orthopedic Progress Note ---
Date of Service September 15, 2019 Assessment & Plan (1) Closed fracture of right hip: POD #3 Right hip bipolar hemiarthroplasty PT/ OT DVT proph- Lovenox D/C plans- Rehab As per medicine. Admission and Anticipated Discharge Date Admission Date: September 11, 2019 Subjective Post Operative Progress Note Patient seen sitting in chair at bedside, comfortable, denies complaints, pain well controlled, no acute issues. Denies F/C/N/V/SOB/CP. Review of Systems Review of Systems: All systems reviewed & are unremarkable except as noted in HPI & below Constitutional: as per Subjective / HPI Physical Exam Physical Exam: RLE NVSI +EHL/FHL/TA/GS SILT grossly, +2 DP pulse, compartments soft NT, dressing cdi. Constitutional: WD/WN, vitals as above Results & Data ([facility]) Vital Signs (Past 12 Hours) Vital Signs Temp Pulse Resp BP Pulse Ox 09/15/19 07:41 36.8 C 75 18 110/76 95 09/14/19 23:24 36.9 C 85 18 146/70 H 91 Laboratory Results 09/15/19 09/15/19 09/15/19 Range/Units 08:20 05:14 05:14 WBC 6.14 (4.8-10.8) K/uL RBC 2.75 L (4.2-5.4) M/uL Hgb 8.8 L (12.0-16.0) g/dL Hct 26.4 L (37-47) % MCV 96.0 (80-100) fL MCH 32.0 (25-34) pg MCHC 33.3 (32-36) g/dL RDW Std Deviation 48.3 H (36.4-46.3) fL RDW Coeff of Elton 13.7 (11.5-14.5) % Plt Count 183 (130-400) K/uL MPV 9.5 (7.4-10.4) fL Immature Gran % (Auto) 0.3 % Neut % (Auto) 65.3 % Lymph % (Auto) 19.4 % [place] % (Auto) 10.9 % Eos % (Auto) 3.6 % Baso % (Auto) 0.5 % Immature Gran # (Auto) 0.02 (0.00-0.02) K/uL Neut # (Auto) 4.01 (1.4-6.5) K/uL Lymph # (Auto) 1.19 L (1.2-3.4) K/uL [place] # (Auto) 0.67 H (0.11-0.59) K/uL Eos # (Auto) 0.22 (0-0.5) K/uL Baso # (Auto) 0.03 (0-0.2) K/uL Sodium 136 (136-145) mmol/L Potassium 4.1 (3.5-5.1) mmol/L Chloride 108 H (98-107) mmol/L Carbon Dioxide 23 (21-32) mmol/L Anion Gap 5.0 (3-11) BUN 18 (7-18) mg/dl Creatinine 1.12 (0.6-1.2) mg/dl Est Cr Clr Drug Dosing 35.0 ml/min Est GFR ( Amer) 51.9 Est GFR (Non-Af Amer) 44.8 BUN/Creatinine Ratio 16.2 (10-20) Glucose 119 H (70-99) mg/dl POC Glucose 124 H (70-99) mg/dl Calcium 8.5 (8.5-10.1) mg/dl 09/14/19 09/14/19 09/14/19 Range/Units 20:23 17:17 12:02 WBC (4.8-10.8) K/uL RBC (4.2-5.4) M/uL Hgb (12.0-16.0) g/dL Hct (37-47) % MCV (80-100) fL MCH (25-34) pg MCHC (32-36) g/dL RDW Std Deviation (36.4-46.3) fL RDW Coeff of Elton (11.5-14.5) % Plt Count (130-400) K/uL MPV (7.4-10.4) fL Immature Gran % (Auto) % Neut % (Auto) % Lymph % (Auto) % [place] % (Auto) % Eos % (Auto) % Baso % (Auto) % Immature Gran # (Auto) (0.00-0.02) K/uL Neut # (Auto) (1.4-6.5) K/uL Lymph # (Auto) (1.2-3.4) K/uL [place] # (Auto) (0.11-0.59) K/uL Eos # (Auto) (0-0.5) K/uL Baso # (Auto) (0-0.2) K/uL Sodium (136-145) mmol/L Potassium (3.5-5.1) mmol/L Chloride (98-107) mmol/L Carbon Dioxide (21-32) mmol/L Anion Gap (3-11) BUN (7-18) mg/dl Creatinine (0.6-1.2) mg/dl Est Cr Clr Drug Dosing ml/min Est GFR ( Amer) Est GFR (Non-Af Amer) BUN/Creatinine Ratio (10-20) Glucose (70-99) mg/dl POC Glucose 198 H 123 H 150 H (70-99) mg/dl Calcium (8.5-10.1) mg/dl (1) Closed fracture of right hip Encounter type: initial encounter Qualified Code(s): S72.001A - Fracture of unspecified part of neck of right femur, initial encounter for closed fracture
--- NOTE | 2019-09-15 13:32 | Pharmacy Report ---
Pharmacy Glycemic Short Note 2 - Date of Service September 15, 2019 - Glycemic Short BSG Results (Last 24 hours): 09/14/19 09/14/19 09/15/19 17:17 20:23 05:14 Glucose 119 H POC Glucose 123 H 198 H 09/15/19 09/15/19 08:20 12:02 Glucose POC Glucose 124 H 143 H OUTPATIENT ANTIDIABETIC REGIMEN: * metformin 500 mg PO daily * glipizide 10 mg PO daily * A1c = 6.5 % (09/12/19) Risk Factors for Insulin Resistance: * Steroids: Dexamethasone 8 mg IV x 1 intraop * Recent Surgery: POD #1 s/p right hemiarthroplasty * Diet: T2DM - Assessment & Plan ASSESSMENT: 09/14: * Patient received total of 9 units of insulin yesterday, all of which were bolus insulin * Fasting level 119 mg/dL - within range/appropriate, therefore continue to hold basal insulin * BSGs continuing to improve yesterday, will continue same CF/CR PLAN FOR INPATIENT GLYCEMIC CONTROL: * Hold outpatient oral diabetes medications - consider resuming metformin prior to discharge when renal function adequate; Scr slowly improving, may consider restarting home metformin tomorrow * Basal insulin none indicated * Bolus insulin - continue same * NovoLog per scale ACHS or Q6hrs while NPO * Goal Range: Low 120 mg/dL - High 150 mg/dL * Correction Factor: 35 mg/dL/unit * Nutritional / Prandial insulin per carb ratio of 1 unit per 12 grams CHO consumed PLAN FOR DISCHARGE: * A1c = 6.5% on 09/12/19, which is at goal for patient's age/comorbidities * Can resume metformin and glipizide on discharge, as long as no contraindica tions present
--- NOTE | 2019-09-15 19:16 | Hospitalist Progress Note ---
Date of Service September 15, 2019 Assessment & Plan (1) Closed fracture of right hip: Present on admission after mechanical fall CT hip showed slightly displaced and distracted subcapital fracture right hip. Linear hairline extension to the lesser trochanter. CT head showed no acute intracranial findings S/P day #2 right Bipolar Hemiarthroplasty Hip Cemented performed by Dr. Alas today No post-op complication Continue incentive spirometry Hgb 10.2 stable No blood tranfusion since pt is Jehovah Witness Continue Pain control Fall precaution Waiting for placement to rehab (2) Troponin level elevated: Possible related to elevated creatinine Troponin on admission 0.04, then peak to 0.238, now trending down to 0.212 Denies any chest pain EKG showed nonspecific ST changes ECHO done showed no wall motion abnormality with EF btw 60-65 % Cardiology on board Case discussed with cardiology, no additional cardiac testing continue monitor Diabetes Mos recent Hba1c 6.5 Will hold on Metformin and glipizide Continue insulin sliding scale Hypertension Will resume Lisinopril in am BP stable DVT px on Lovenox subq Code Status Full code Disposition Waiting for placement to rehab Admission and Anticipated Discharge Date Admission Date: September 11, 2019 Subjective Pt was seen and examined Lying in bed with no distress Pt said that she feels fine She said that she is not in pain when she stays still she said that she walked around with therapy today Denies any chest pain, palpitation, dizziness and SOB Physical Exam Physical Exam: General- No acute distress Head- atraumatic Eyes- PERRL, EOMI, ENT- oropharynx clear Neck- supple, no JVD Lungs- clear to auscultation Heart- regular rhythm; no murmur Abdomen- normal bowel sounds, soft, nontender Extremities- no calf tenderness Neuro- alert, oriented x 3; PERRL, EOMI; no facial palsy; no dysarthria Skin- warm & dry Results & Data ([facility]) Vital Signs (Past 12 Hours) Vital Signs Temp Pulse Resp BP Pulse Ox 09/15/19 15:05 36.4 C L 70 16 107/70 97 09/15/19 07:41 36.8 C 75 18 110/76 95 (1) Closed fracture of right hip Encounter type: initial encounter Qualified Code(s): S72.001A - Fracture of unspecified part of neck of right femur, initial encounter for closed fracture
[2019-09-15] MEDS: SENNA 8.6 MG TAB PO SCH (21:11)
[2019-09-16 06:13] LABS: Basophils # (auto) 0.02 K/uL (0-0.2); Basophils % (auto) 0.4 %; Eosinophils # (auto) 0.17 K/uL (0-0.5); Eosinophils % (auto) 3.2 %; Hemoglobin 9.5 g/dL (12.0-16.0); Immature Granulocytes # (auto) 0.02 K/uL (0.00-0.02); Immature Granulocytes % (auto) 0.4 %; Lymphocytes # (auto) 1.37 K/uL (1.2-3.4); Mean Corpuscular Hemoglobin 32.8 pg (25-34); Mean Corpuscular Hgb Conc 33.9 g/dL (32-36); Mean Corpuscular Volume 96.6 fL (80-100); Mean Platelet Volume 9.3 fL (7.4-10.4); Monocytes # (auto) 0.53 K/uL (0.11-0.59); Monocytes % (auto) 10.1 %; Neutrophils # (auto) 3.15 K/uL (1.4-6.5); Neutrophils % (auto) 59.9 %; Platelet Count 214 K/uL (130-400); RDW Coefficient of Variation 13.6 % (11.5-14.5); RDW Standard Deviation 47.8 fL (36.4-46.3); White Blood Count 5.26 K/uL (4.8-10.8)
[2019-09-16] MEDS: CEROVITE ADV FORMULA TAB PO SCH (08:46)
[2019-09-16] MEDS: lisinopriL 40 MG TAB PO SCH (08:46)
[2019-09-16] MEDS: SIMVASTATIN 20 MG TAB PO SCH (08:46)
[2019-09-16] MEDS: METOPROLOL TARTRATE 25 MG TAB PO SCH ×2 (08:46→20:46)
[2019-09-16] MEDS: ENOXAPARIN INJ 40 MG/0.4 ML SYR SQ SCH (09:03)
[2019-09-16] MEDS: INSULIN ASPART 100 UNITS/ML 3 ML PEN SC SCH ×4 (09:03→20:46)
[2019-09-16] MEDS: HYDROCODONE/ACETAMOPHEN 5/325MG TAB PO PRN ×2 (12:04→16:11)
[2019-09-16] MEDS: ACETAMINOPHEN 325 MG TAB PO PRN (14:25)
--- NOTE | 2019-09-16 19:54 | Hospitalist Progress Note ---
Date of Service September 16, 2019 Assessment & Plan (1) Closed fracture of right hip: Present on admission after mechanical fall CT hip showed slightly displaced and distracted subcapital fracture right hip. Linear hairline extension to the lesser trochanter. CT head showed no acute intracranial findings S/P day #3 right Bipolar Hemiarthroplasty Hip Cemented performed by Dr. Alas today No post-op complication Continue incentive spirometry Hgb 10.2 stable No blood tranfusion since pt is Jehovah Witness Continue Pain control Fall precaution Waiting for placement to rehab (2) Troponin level elevated: Possible related to elevated creatinine Troponin on admission 0.04, then peak to 0.238, now trending down to 0.212 Denies any chest pain EKG showed nonspecific ST changes ECHO done showed no wall motion abnormality with EF btw 60-65 % Cardiology on board Case discussed with cardiology, no additional cardiac testing continue monitor Diabetes Mos recent Hba1c 6.5 Will hold on Metformin and glipizide Continue insulin sliding scale Hypertension Will resume Lisinopril in am BP stable DVT px on Lovenox subq Code Status Full code Disposition Waiting for placement to rehab Admission and Anticipated Discharge Date Admission Date: September 11, 2019 Subjective Pt was seen and examined Sitting in chair with no distress Pt said that she feels well she said that she only has pain with movement She said that she had a large BM Denies any chest pain, palpitation and SOB Physical Exam Physical Exam: General- No acute distress Head- atraumatic Eyes- PERRL, EOMI, ENT- oropharynx clear Neck- supple, no JVD Lungs- clear to auscultation Heart- regular rhythm; no murmur Abdomen- normal bowel sounds, soft, nontender Extremities- no calf tenderness Neuro- alert, oriented x 3; PERRL, EOMI; no facial palsy; no dysarthria Skin- warm & dry Results & Data ([facility]) Vital Signs (Past 12 Hours) Vital Signs Temp Pulse Resp BP Pulse Ox 09/16/19 15:35 36.8 C 71 18 110/64 92 09/16/19 08:07 36.6 C 78 18 121/74 95 (1) Closed fracture of right hip Encounter type: initial encounter Qualified Code(s): S72.001A - Fracture of unspecified part of neck of right femur, initial encounter for closed fracture
[2019-09-16] MEDS: SENNA 8.6 MG TAB PO SCH (20:46)
[2019-09-17 07:37] LABS: Creatinine Clr Calc Pharmacy 32.7 ml/min; Est GFR (African American) 47.7; Est GFR (Non-African American) 41.2
[2019-09-17] MEDS: ENOXAPARIN INJ 40 MG/0.4 ML SYR SQ SCH (08:47)
[2019-09-17] MEDS: METOPROLOL TARTRATE 25 MG TAB PO SCH (08:47)
[2019-09-17] MEDS: lisinopriL 40 MG TAB PO SCH (08:47)
[2019-09-17] MEDS: SIMVASTATIN 20 MG TAB PO SCH (08:48)
[2019-09-17] MEDS: CEROVITE ADV FORMULA TAB PO SCH (08:48)
[2019-09-17] MEDS: HYDROCODONE/ACETAMOPHEN 5/325MG TAB PO PRN (09:14)
[2019-09-17] MEDS: INSULIN ASPART 100 UNITS/ML 3 ML PEN SC SCH ×2 (09:27→13:02)
[2019-09-17] MEDS: ACETAMINOPHEN 325 MG TAB PO PRN (11:21)
--- NOTE | 2019-09-17 11:30 | Hospitalist Progress Note ---
Date of Service September 17, 2019 Assessment & Plan (1) Closed fracture of right hip: Present on admission after mechanical fall CT hip showed slightly displaced and distracted subcapital fracture right hip. Linear hairline extension to the lesser trochanter. CT head showed no acute intracranial findings S/P day #3 right Bipolar Hemiarthroplasty Hip Cemented performed by Dr. Alas today No post-op complication Continue incentive spirometry Hgb 10.2 stable No blood transfusion since pt is Jehovah Witness Continue Pain control Fall precaution Discharge to [facility] for rehab (2) Troponin level elevated: Possible related to elevated creatinine Troponin on admission 0.04, then peak to 0.238, now trending down to 0.212 Denies any chest pain EKG showed nonspecific ST changes ECHO done showed no wall motion abnormality with EF btw 60-65 % Cardiology on board Case discussed with cardiology, no additional cardiac testing continue monitor Diabetes Mos recent Hba1c 6.5 Will resume Metformin and glipizide on discharge Continue insulin sliding scale Hypertension Continue Lisinopril 40mg daily BP stable DVT px on Lovenox subq Code Status Full code Disposition Follow up with your primary care provider once discharge from rehab Discharge to [facility] for rehab Admission and Anticipated Discharge Date Admission Date: September 11, 2019 Subjective Pt was seen and examined Lying in bed with no distress Pt said that she feels much better She said that she slept well last night She participated in therapy and did well Denies any chest pain, palpitation, dizziness and SOB Physical Exam Physical Exam: General- No acute distress Head- atraumatic Eyes- PERRL, EOMI, ENT- oropharynx clear Neck- supple, no JVD Lungs- clear to auscultation Heart- regular rhythm; no murmur Abdomen- normal bowel sounds, soft, nontender Extremities- no calf tenderness Neuro- alert, oriented x 3; PERRL, EOMI; no facial palsy; no dysarthria Skin- warm & dry Results & Data ([facility]) Vital Signs (Past 12 Hours) Vital Signs Temp Pulse Resp BP Pulse Ox 09/17/19 08:00 36.7 C 85 18 143/67 H 97 (1) Closed fracture of right hip Encounter type: initial encounter Qualified Code(s): S72.001A - Fracture of unspecified part of neck of right femur, initial encounter for closed fracture
--- NOTE | 2019-09-17 11:47 | Discharge Summary ---
Date of Service September 17, 2019 Admission HPI Per Admitting Provider CHIEF COMPLAINT: Fall and hip fracture. HISTORY OF PRESENT ILLNESS: This is an 84-year-old female with past medical history significant for type 2 diabetes, hypertension, vitamin D deficiency, history of urinary frequency, generalized osteoarthritis, who lives with her , walks without any support, fell at home. The patient says she was getting up from the chair and she just turned and she is wearing a soft footwear when she slipped and fell on the right side. She also hit her head, was bleeding from the head, but there was no loss of consciousness, did not feel dizzy or chest pain before falling. It was a mechanical fall and she could not get up and she was brought in here. Head wound was fine, but imaging studies showed right hip slightly displaced and distracted subcapital fracture of right hip, linear hairline extension into the lesser trochanter. Has had pain medication. Currently resting comfortably. Any movement causes her pain. Hemodynamics are stable. Denies any headache, no blurred vision, no dizziness, no earache, no runny nose, no sore throat, no cough, no fever, no chills. Appetite is okay. No dysphagia, no chest pain, no shortness of breath, no nausea, no abdominal pain. She has normal bowel and bladder movements. No blood in the stools or black stools. No burning micturition, no swelling in the legs. Admission Exam Per Admitting Provider GENERAL: The patient is old and frail, not in acute distress. VITAL SIGNS: Temperature 36.3, pulse 70, respiratory rate 18, blood pressure 104/51, oxygen 97% room air. HEENT: No pallor, no icterus. Pupils equal, round, reactive to light. NECK: No JVD, no neck masses, no carotid bruits. CARDIOVASCULAR: S1, S2 heard, regular rate and rhythm, no murmur, no gallop. RESPIRATORY SYSTEM: Normal AP diameter. No accessory muscle use. No wheezing, no crackles. ABDOMEN: Soft, bowel sounds present, nontender. No distention. CENTRAL NERVOUS SYSTEM: Alert and oriented. Obeys commands. Nonfocal. EXTREMITIES: Right lower extremity is shortened and externally rotated. No erythema seen. Principal Diagnosis Closed fracture of right hip: Troponin level elevated: Diabetes Type 2 Hypertensio Discharge Exam General- No acute distress Head- atraumatic Eyes- PERRL, EOMI, ENT- oropharynx clear Neck- supple, no JVD Lungs- clear to auscultation Heart- regular rhythm; no murmur Abdomen- normal bowel sounds, soft, nontender Extremities- no calf tenderness Neuro- alert, oriented x 3; PERRL, EOMI; no facial palsy; no dysarthria Skin- warm & dry Discharge Data Allergies Allergy/AdvReac Type Severity Reaction Status Date / Time egg AdvReac Gastrointestinal Verified 09/12/19 15:02 Upset Consultations 09/11/19 21:06 ED Decision to Admit Stat 09/11/19 23:12 Consult Case Management - Discharge Planning Routine 09/12/19 08:00 Consult Orthopedic Surgery Routine 09/12/19 08:46 Consult Cardiology Routine 09/13/19 08:00 Consult Case Management - Discharge Planning Routine Procedures Performed Operation Date: 09/12/19 14:00 Actual Procedures p Right Bipolar Hemiarthroplasty Hip Cemented(Right) - Cullen Alas MD Ordered Studies 09/11/19 19:29 CT hip RT wo con Stat 09/12/19 03:14 CT head/brain wo con Urgent 09/12/19 15:09 US - OR guided needle placemen Routine XR femur RT 2V routine CLINICAL HISTORY: pain after fall trauma. Pain. COMPARISON: None. DISCUSSION: Slight linear sclerosis subcapital region right hip on the slightly rotated image. Remainder the femur is unremarkable. There is a total right knee arthroplasty. IMPRESSION: Sclerotic line at the subcapital region of the right hip. Considerations include artifact versus slightly impacted fracture. CT of the right hip is suggested as follow-up. ACT 112: Negative or not required by law. The above report was generated using voice recognition software. It may contain grammatical, syntax or spelling errors. Electronically signed by: Srinivas Gutiérrez M.D. 09/11/2019 6:57 PM Dictated: 09/11/191854 Transcribed: 09/11/191854 XR hip RT 2V w pelvis CLINICAL HISTORY: fall, pain trauma. Pain. COMPARISON: None. DISCUSSION: Sclerotic linear focus subcapital region right hip. CT of the right hip is again suggested as follow-up. The remainder the bony pelvis shows generalized degenerative changes throughout. No evidence for acetabular protr usion. There is no evidence for soft tissue swelling. IMPRESSION: Artifact versus slightly impacted subcapital fracture right hip. CT of the right hip is suggested as follow-up. ACT 112: Negative or not required by law. The above report was generated using voice recognition software. It may contain grammatical, syntax or spelling errors. Electronically signed by: Srinivas Gutiérrez M.D. 09/11/2019 6:58 PM Dictated: 09/11/191856 Transcribed: 09/11/191856 XR chest 1V portable CLINICAL HISTORY: fall, rt hip pain COMPARISON STUDY: No previous studies for comparison. FINDINGS: Severe degenerative change right shoulder. Prior total left shoulder arthroplasty. IMPRESSION: No acute process. ACT 112: Negative or not required by law. The above report was generated using voice recognition software. It may contain grammatical, syntax or spelling errors. Electronically signed by: Srinivas Gutiérrez M.D. 09/11/2019 6:55 PM Dictated: 09/11/191853 Transcribed: 09/11/191853 CT hip RT wo con CT DOSE: 396.97 mGy.cm HISTORY: Trauma. Pain. r/o fx TECHNIQUE: Multiaxial CT images of the right hip were performed and reformatted in the sagittal and coronal plane without the use of contrast. A dose lowering technique was utilized adhering to the principles of ALARA. COMPARISON: None. FINDINGS: Fracture subcapital region right hip. There are findings of an anterior lucency of the femoral neck possibly on the basis of or accentuated by osteoporosis. A lytic process isn't not easily identified. Possible hairline extension to the lesser trochanter. This is best seen on image 221. Old healed fracture right pubic ring. No evidence for dislocation. Femoral neck is slightly anterior to the subcapital region. IMPRESSION: 1. Slightly displaced and distracted subcapital fracture right hip. 2. Linear hairline extension to the lesser trochanter. 3. No evidence for dislocation. 4. Osteopenia/osteoporosis. ACT 112: Negative or not required by law. The above report was generated using voice recognition software. It may contain grammatical, syntax or spelling errors. Electronically signed by: Srinivas Gutiérrez M.D. 09/11/2019 8:29 PM Dictated: 09/11/192023 Transcribed: 09/11/192023 CT head/brain wo con CLINICAL HISTORY: fall. head injury COMPARISON STUDY: No previous studies for comparison. TECHNIQUE: Axial CT of the brain is performed from the vertex to the skull base. IV contrast was not administered for this examination. A dose lowering technique was utilized adhering to the principles of ALARA. CT DOSE: 767.83 mGy.cm FINDINGS: No intra or extra-axial mass lesions are visualized. There is no CT evidence of acute cortical infarction. There is no evidence of midline shift. There is no acute hemorrhage. No calvarial fractures are visualized. There are minor white matter hypodensities likely on a small vessel basis. There is no evidence of pathologic ventricular dilatation. There is mild sphenoid sinus mucosal thickening. IMPRESSION: No acute intracranial findings ACT 112: Negative or not required by law. Electronically signed by: Zohaib Escalante M.D. 09/12/2019 6:35 AM Dictated: 09/12/19634 Transcribed: 09/12/19634 XR hip 1V RT w pelvis CLINICAL HISTORY: IN PACU - A/P PELVIS and LATERAL HIP COMPARISON: 09/11/2019 DISCUSSION: Anatomic alignment post total right hip arthroplasty. Expected soft tissue postoperative change IMPRESSION: Anatomic alignment posttotal right hip arthroplasty. ACT 112: Negative or not required by law. The above report was generated using voice recognition software. It may contain grammatical, syntax or spelling errors. Electronically signed by: Srinivas Gutiérrez M.D. 09/12/2019 6:31 PM Dictated: 09/12/191830 Transcribed: 09/12/191830 Hospital Course (1) Closed fracture of right hip: Present on admission after mechanical fall CT hip showed slightly displaced and distracted subcapital fracture right hip. Linear hairline extension to the lesser trochanter. CT head showed no acute intracranial findings S/P day #3 right Bipolar Hemiarthroplasty Hip Cemented performed by Dr. Alas today No post-op complication Continue incentive spirometry Hgb 10.2 stable No blood transfusion since pt is Jehovah Witness Continue Pain control Fall precaution Discharge to [facility] today for rehab (2) Troponin level elevated: Possible related to elevated creatinine Troponin on admission 0.04, then peak to 0.238, now trending down to 0.212 Denies any chest pain EKG showed nonspecific ST changes ECHO done showed no wall motion abnormality with EF btw 60-65 % Cardiology on board Case discussed with cardiology, no additional cardiac testing continue monitor Diabetes Mos recent Hba1c 6.5 Will resume Metformin and glipizide on discharge Continue insulin sliding scale Hypertension Continue Lisinopril 40mg daily BP stable DVT px on Lovenox subq Code Status Full code Disposition Follow up with your primary care provider once discharge from rehab Discharge to [facility] for rehab Total Time Total Time Spent Total Time Spent (In Minutes): 35 minutes Total Time Includes: Examination of the Patient, Discharge Planning, Medication Reconciliation, Communication With Other Providers and Other Discharge Plan Discharge Items Patient Disposition: Transfer Inpatient Rehab Fac Reason For Visit: FALL,HIP PAIN Discharge Diagnosis: Closed fracture of right hip: Troponin level elevated: Diabetes Type 2 Hypertension Activity: Resume your previous activity Non-emergency contact: Primary Care Provider and Surgeon Call non-emergency contact if: you have any medication questions and your temperature is above 101 Follow-up/Referrals: Srinivas James MD [Primary Care Provider] - Diet: Carb Consistent or DM2 and Heart Healthy Addtl Attending Provider Instructions: Follow up with your primary care provider once discharge from rehab Follow up with Dr. Alas at [facility] [place] (Please call [phone] to schedule a follow up appointment between 10-14 days from the date of your surgery date) Follow up orthopedic recommendations below. Continue physical and occupational therapy Fall precaution Please do not drive or operate any machine after taking narcotic Please hold next dose of narcotic in you become drowsy and lethargy Addtl Auto Mechanic Apprentice Provider Instructions: [facility] DISCHARGE INSTRUCTIONS: HIP FRACTURE SELF CARE INSTRUCTIONS: A. You are to ambulate with a walker or crutches for approximately 6 weeks. B. You are WEIGHT BEARING TOLERATE on your operative lower extremity for at least 6 weeks. C. Wear low heeled shoes with non-slip soles D. Be sure that your floors are free of things that could trip you throw rugs, electrical cords, and small objects. Avoid wet and waxed floors, especially with crutches/walker/cane. E. Try to walk several times a day with rest periods between. F. You may shower 48 hours after surgery and get the incision area wet, but DO NOT soak or submerge incision area in water. (No baths, swimming pools, hot tubs) G. You may have a large, band-aid like dressing over your incision (Aquacel). This will remain on your incision for 7 days, and then can be removed. You CAN shower with this on. If incision is leaking through the dressing, please call the office . H. Do NOT apply soap or any ointment/lotions directly over incision. I. You may use ice as needed to operative site. SPECIAL CARE INSTRUCTIONS: VERY IMPORTANT TO READ AND REVIEW A. You may be at risk for phlebitis or blood clots. a. Wear surgical stockings (KARYNA hose) for 2 weeks after surgery to improve circulation and reduce swelling. b. Take LOVENOX 40mg SQ daily for 4 weeks or as directed. This is your blood thinner. c. If you are on Coumadin- you will have daily/weekly blood work to monitor your levels. This will be done by either your family physician/mitering machine operator (if you are on Coumadin chronically) versus your orthopedic surgeon. Expect a phone call the day of or the day after your blood work is drawn to adjust your dose accordingly. B. There are a few signs you need to watch for after you are home. Call [facility] at [phone] if you experience any of the following: a. If you have a temperature of 101 degrees or higher. b. Sudden increase in pain in your hip not relieved by rest or pain medication. c. Any fluid or drainage from the incision; redness of the incision. d. Shortness of breath or chest pain. B. Please call [facility] at [phone] if you have any questions or concerns about your operation or recovery. C. Call your physician if: a. Temperature is greater than 101 degrees (F). b. Pain is not relieved by prescribed pain medications. c. Increase drainage or redness from incision. d. Unanswered questions or concerns. D. Pain Medication: a. You will be prescribed pain medication upon discharge that should last till your first post-operative appointment. b. If you experience nausea and/or skin rash, discontinue this medication and contact our office for an alternative medication. c. Caution- narcotic pain medication can cause constipation. FOLLOW UP VISIT: Please call [facility], Dr Alas at [phone] to schedule a follow up appointment 10-14 days from the date of your surgery date. Pending Studies at Discharge: No Stand-Alone Forms: My [facility] Skilled Items Patient informed of condition?: Yes DNR: No Discharge Level of Care: Acute rehab Communicable Disease: No Discharge Prognosis: Stable Lines: None Urinary Catheter: No Medications and DC Order Prescriptions: New acetaminophen [Mapap (acetaminophen)] 325 mg Tablet 650 mg PO Q6H PRN (Reason: pain) Qty: 30 RF: 0 hydrocodone-acetaminophen [Galena] 5-325 mg Tablet 1 tab PO Q8H PRN (Reason: severe pain (scale score 7-10)) Qty: 10 RF: 0 enoxaparin 40 mg/0.4 mL Syringe 40 mg subcut QAM Qty: 14 RF: 0 sennosides [Senokot] 8.6 mg Tablet 17.2 mg PO HS PRN (Reason: diarrhea) Qty: 30 RF: 0 Continued glipizide 10 mg tablet 10 mg PO DAILY RF: 0 simvastatin 20 mg tablet 20 mg PO DAILY RF: 0 metoprolol tartrate 50 mg tablet 25 mg PO BID RF: 0 lisinopril 40 mg tablet 40 mg PO DAILY RF: 0 metformin 500 mg tablet extended release 24 hr 500 mg PO DAILY RF: 0 Multivitamin 50 Plus Tablet 1 tab PO DAILY RF: 0 Discharge Orders: Discharge Order (Routine); Ordered 09/17/19 Ordered By: Jl Anglin Admission Data Admit Date/Time: 09/11/19 21:56 Attending Provider: Jl Anglin Admit Provider: Lazaro Cano Primary Care Provider: Srinivas James Other Providers: [facility] ; [facility] Mendez [facility] [place] ; Lazaro Cano ; Cullen Alas ; Keegan Catalan ; Romeo Grullon ; Melchor Mackey ; Nic Givens ; Maikel Mullen ; Srinivas Barbour ; Gayle Rodriguez ; Elli Taylor ; Gagan Dueñas
== END 2019-09-17 13:56 | DRG 470 ==
LOC: ED 17:29 → 3N 21:56